=== PATIENT | female | born 1930 | race Caucasian/White ===

== ENCOUNTER → 2017-04-12 | Outpatient (CLI) | payer MEDICARE ==
[~2017-04-12] MED LIST: ASPIRIN 32325 MG/TAB PO; CIMETIDINE400 MG PO; MULTIVITAMIN FO1 CAP PO; NORVASC 5MG5 MG/TAB PO; TAGAMET400 MG PO; TYLENOL 325MG325 MG PO; ZESTRIL 10MG10 MG PO; ZITHROMAX TRI-500 MG PO
== END ==
LOC: ZCOL.LAB 20:08
DX: N39.0 Urinary tract infection, site not specified (principal)

== ENCOUNTER → 2017-04-16 | Outpatient (CLI) | payer MEDICARE ==
[2017-04-16 17:59] LABS: BASO # 0.1 (0.0-0.2); BASO % 0.8 % (0.0-2.0); EOS # 0.2 (0.0-0.7); EOS % 2.5 % (0-4.0); GRAN # 4.3 (1.4-6.5); GRAN % 70.4 % (42.2-75.2); HEMOGLOBIN 12.1 g/dl (12.5-16.0); LYMPH # 1.1 (1.2-3.4); LYMPH % 17.5 % (20.0-51.0); MEAN CELL VOLUME 93 fl (80.0-100.0); MEAN CORPUSCULAR HEMOGLOBIN 31 pg (27.0-31.0); MEAN CORPUSCULAR HGB CONC 33 g/dl (33.0-37.0); MEAN PLATELET VOLUME 9.2 fl (7.4-10.4); MONO # 0.5 (0.1-0.6); MONO % 8.5 % (1.7-9.3); PLATELET COUNT 245 K/mm3 (130-400); RED BLOOD COUNT 3.92 M/mm3 (4.10-5.30); REDCELL DISTRIBUTION WIDTH-CV 12.6 % (11.5-14.5); WHITE BLOOD COUNT 6.1 K/mm3 (4.8-10.8)
[2017-04-16 18:00] LABS: HEMATOCRIT 36.6 % (37.0-47.0)
[2017-04-16 18:05] LABS: ADJUSTED CALCIUM 9.1 mg/dL (8.4-10.2); ALBUMIN 3.7 gm/dL (3.5-5.0); BILIRUBIN,TOTAL 0.7 mg/dL (0.0-1.0); CALCIUM 8.9 mg/dL (8.4-10.2); CREATININE, serum 1.53 mg/dL (0.52-1.25); POTASSIUM 4.8 mmol/L (3.4-5.0); TOTAL PROTEIN 6.4 gm/dL (6.4-8.2)
== END ==
LOC: ZCOL.LAB 17:47
PROVIDERS: Nurse Practitioner Primary Care
DX: R10.9 Unspecified abdominal pain (principal)

== ENCOUNTER → 2017-04-19 | Outpatient (CLI) | payer MEDICARE | LOC: COL.RAD 07:14 | DX: Q60.3 Renal hypoplasia, unilateral (principal); N28.1 Cyst of kidney, acquired; D35.02 Benign neoplasm of left adrenal gland; N32.3 Diverticulum of bladder ==

== ENCOUNTER 2017-09-01 17:36 | Observation (INO) | payer MEDICARE ==
[~2017-09-01] VITALS: Ht 157.5 cm; Wt 41.0 kg
[2017-09-01] MEDS ORDERED: MIRALAX PA17 GM/Dose PO (18:08)
[2017-09-01] MEDS ORDERED: ASPIRIN E.C. 8181 MG PO (18:08)
[2017-09-01 18:25] LABS: BASO % 0.7 % (0.0-2.0); EOS # 0.3 (0.0-0.7); EOS % 5.5 % (0-4.0); GRAN # 4.5 (1.4-6.5); HEMATOCRIT 37.4 % (37.0-47.0); HEMOGLOBIN 12.8 g/dl (12.5-16.0); LYMPH # 0.7 (1.2-3.4); MEAN CELL VOLUME 93 fl (80.0-100.0); MEAN CORPUSCULAR HEMOGLOBIN 32 pg (27.0-31.0); MEAN CORPUSCULAR HGB CONC 34 g/dl (33.0-37.0); MEAN PLATELET VOLUME 9.2 fl (7.4-10.4); MONO # 0.5 (0.1-0.6); MONO % 7.5 % (1.7-9.3); PLATELET COUNT 217 K/mm3 (130-400); RED BLOOD COUNT 4.04 M/mm3 (4.10-5.30); REDCELL DISTRIBUTION WIDTH-CV 12.1 % (11.5-14.5)
[2017-09-01 18:34] LABS: PH 6 (5-8); SQUAMOUS EPITHELIAL None Seen /hpf; URINE APPEARANCE Hazy; URINE BACTERIA Rare /hpf; URINE BILIRUBIN Negative (NEGATIVE); URINE BLOOD 1+ (NEGATIVE); URINE COLOR Yellow; URINE GLUCOSE Negative (NEGATIVE); URINE KETONE Negative (NEGATIVE); URINE UROBILINOGEN Negative (NEGATIVE)
[2017-09-01 18:52] LABS: ADJUSTED CALCIUM 9.1 mg/dL (8.4-10.2); ALANINE AMINOTRANSFERASE 29 U/L (9-52); ALBUMIN 4.2 gm/dL (3.5-5.0); ALKALINE PHOSPHATASE 54 U/L (50-136); ANION GAP 11 mmol/L (7-16); BILIRUBIN,TOTAL 0.8 mg/dL (0.0-1.0); BLOOD UREA NITROGEN 24 mg/dL (7-17); CALCIUM 9.3 mg/dL (8.4-10.2); CARBON DIOXIDE 23 mmol/L (22-30); CHLORIDE 96 mmol/L (98-107); CREATININE, serum 1.41 mg/dL (0.52-1.25); GLUCOSE 96 mg/dL (74-106); LIPASE 73 U/L (23-300); POTASSIUM 4.9 mmol/L (3.4-5.0); SODIUM 130 mmol/L (137-145); TOTAL PROTEIN 6.9 gm/dL (6.4-8.2)
[2017-09-01 18:57] LABS: C-REACTIVE PROTEIN < 0.5 mg/dL (0.0-0.9)
[2017-09-01 19:07] LABS: TROPONIN-I < 0.012 ng/mL (0.000-0.034)
[2017-09-01 21:47] VITALS: BP 192/76; PULSE 70; TEMP 98.6
[2017-09-02 00:41] VITALS: BP 177/68; PULSE 70; TEMP 97.6
[2017-09-02 05:06] VITALS: BP 157/61; PULSE 88; TEMP 97.8
[2017-09-02 10:49] VITALS: BP 172/59; PULSE 51; TEMP 98.1
== END 2017-09-02 15:33 | disposition home or self-care (01) ==
LOC: COL.ER 17:36 → SURG 20:04
PROVIDERS: Emergency Medicine
DX: R10.11 Right upper quadrant pain (principal); G89.29 Other chronic pain; K63.89 Other specified diseases of intestine; Z95.1 Presence of aortocoronary bypass graft; I25.10 Atherosclerotic heart disease of native coronary artery without angina pectoris; I12.9 Hypertensive chronic kidney disease with stage 1 through stage 4 chronic kidney disease, or unspecified chronic kidney disease; N18.9 Chronic kidney disease, unspecified
CPT/HCPCS: G0378; J1170; J2270; J2405; J7030; J7120

== ENCOUNTER → 2018-04-01 | Outpatient (CLI) | payer MEDICARE ==
[~2018-04-01] MED LIST changes: +ASPIRIN E.C. 8181 MG PO; +MIRALAX PA17 GM/Dose PO
== END ==
LOC: MHCPAIN 09:32
DX: G89.29 Other chronic pain (principal); M79.2 Neuralgia and neuritis, unspecified; M79.1 Myalgia; R10.11 Right upper quadrant pain
CPT/HCPCS: G0463

== ENCOUNTER 2018-04-11 11:46 | Emergency (ER) | payer MEDICARE ==
[~2018-04-11] VITALS: Ht 157.5 cm; Wt 40.0 kg
[2018-04-11 11:52] VITALS: BP 162/100; TEMP 97.9
[2018-04-11 12:27] LABS: BASO % 0.4 % (0.0-2.0); EOS % 0.6 % (0-4.0); GRAN # 5.7 (1.4-6.5); GRAN % 80.9 % (42.2-75.2); HEMATOCRIT 43.8 % (37.0-47.0); HEMOGLOBIN 14.6 g/dl (12.5-16.0); LYMPH # 0.8 (1.2-3.4); LYMPH % 11.9 % (20.0-51.0); MEAN CELL VOLUME 95 fl (80.0-100.0); MEAN CORPUSCULAR HEMOGLOBIN 32 pg (27.0-31.0); MEAN CORPUSCULAR HGB CONC 33 g/dl (33.0-37.0); MEAN PLATELET VOLUME 8.8 fl (7.4-10.4); MONO # 0.4 (0.1-0.6); MONO % 5.8 % (1.7-9.3); PLATELET COUNT 316 K/mm3 (130-400); RED BLOOD COUNT 4.61 M/mm3 (4.10-5.30); REDCELL DISTRIBUTION WIDTH-CV 12.9 % (11.5-14.5)
[2018-04-11 12:33] LABS: ALANINE AMINOTRANSFERASE 31 U/L (9-52); ALBUMIN 4.5 gm/dL (3.5-5.0); ALKALINE PHOSPHATASE 115 U/L (50-136); ANION GAP 15 mmol/L (7-16); AST,SGOT 27 U/L (15-37); BILIRUBIN,TOTAL 0.9 mg/dL (0.0-1.0); BLOOD UREA NITROGEN 24 mg/dL (7-17); CALCIUM 9.7 mg/dL (8.4-10.2); CARBON DIOXIDE 23 mmol/L (22-30); CHLORIDE 99 mmol/L (98-107); CREATININE, serum 1.28 mg/dL (0.52-1.25); GLUCOSE 116 mg/dL (74-106); LIPASE 211 U/L (23-300); POTASSIUM 4.3 mmol/L (3.4-5.0); SODIUM 137 mmol/L (137-145); TOTAL PROTEIN 8.2 gm/dL (6.4-8.2)
[2018-04-11 12:37] LABS: C-REACTIVE PROTEIN < 0.5 mg/dL (0.0-0.9)
[2018-04-11 14:01] LABS: COLLECTION METHOD CLEAN CATCH
[2018-04-11 14:13] LABS: MUCOUS Present /lpf; PH 5 (5-8); SQUAMOUS EPITHELIAL None Seen /hpf; URINE APPEARANCE Hazy; URINE BACTERIA Rare /hpf; URINE BILIRUBIN Negative (NEGATIVE); URINE BLOOD 1+ (NEGATIVE); URINE COLOR Yellow; URINE GLUCOSE Negative (NEGATIVE); URINE KETONE Negative (NEGATIVE); URINE LEUKOCYTE ESTERASE 2+ (NEGATIVE); URINE NITRATE Negative (NEGATIVE); URINE PROTEIN(semi-quant) Negative (NEGATIVE); URINE UROBILINOGEN Negative (NEGATIVE)
[2018-04-11] MEDS ORDERED: CIPRO 500MG TA500 MG PO (14:37)
[2018-04-11 18:14] VITALS: PULSE 64
[2018-04-12] MEDS ORDERED: NORVASC 10MG10 MG PO (01:46)
== END 2018-04-11 16:04 | disposition home or self-care (01) ==
LOC: COL.ER 11:46
PROVIDERS: Family Medicine
DX: N39.0 Urinary tract infection, site not specified (principal); K56.7 Ileus, unspecified; Z79.82 Long term (current) use of aspirin
CPT/HCPCS: J0696; J1170; J2270; J2405; J7030

== ENCOUNTER 2018-04-11 19:44 | Inpatient (IN) | payer MEDICARE ==
[~2018-04-11] VITALS: Ht 157.5 cm; Wt 43.9 kg
[~2018-04-11 19:44] MED LIST changes: +CIPRO 500MG TA500 MG PO
[2018-04-11 22:35] LABS: BASO % 0.2 % (0.0-2.0); GRAN # 11.6 (1.4-6.5); GRAN % 93.1 % (42.2-75.2); HEMATOCRIT 38.9 % (37.0-47.0); LYMPH # 0.4 (1.2-3.4); MEAN CELL VOLUME 94 fl (80.0-100.0); MEAN CORPUSCULAR HEMOGLOBIN 32 pg (27.0-31.0); MEAN CORPUSCULAR HGB CONC 33 g/dl (33.0-37.0); MEAN PLATELET VOLUME 8.7 fl (7.4-10.4); MONO # 0.4 (0.1-0.6); MONO % 3.4 % (1.7-9.3); PLATELET COUNT 266 K/mm3 (130-400); RED BLOOD COUNT 4.12 M/mm3 (4.10-5.30); REDCELL DISTRIBUTION WIDTH-CV 12.6 % (11.5-14.5)
[2018-04-12 01:35] VITALS: BP 172/67; PULSE 64; TEMP 98.4
[2018-04-12] MEDS ORDERED: NORVASC 10MG10 MG PO (01:46)
[2018-04-12 04:50] VITALS: BP 162/62; PULSE 55; TEMP 98.5
[2018-04-12 07:19] LABS: BASO % 0.4 % (0.0-2.0); EOS % 0.2 % (0-4.0); GRAN # 6.7 (1.4-6.5); GRAN % 81.6 % (42.2-75.2); HEMATOCRIT 37.2 % (37.0-47.0); HEMOGLOBIN 12.4 g/dl (12.5-16.0); LYMPH # 0.7 (1.2-3.4); LYMPH % 8.8 % (20.0-51.0); MEAN CELL VOLUME 94 fl (80.0-100.0); MEAN CORPUSCULAR HEMOGLOBIN 32 pg (27.0-31.0); MEAN CORPUSCULAR HGB CONC 33 g/dl (33.0-37.0); MEAN PLATELET VOLUME 9.1 fl (7.4-10.4); MONO # 0.7 (0.1-0.6); MONO % 8.5 % (1.7-9.3); PLATELET COUNT 257 K/mm3 (130-400); RED BLOOD COUNT 3.94 M/mm3 (4.10-5.30); REDCELL DISTRIBUTION WIDTH-CV 12.8 % (11.5-14.5)
[2018-04-12 07:30] LABS: ALBUMIN 3.4 gm/dL (3.5-5.0); BILIRUBIN,TOTAL 0.8 mg/dL (0.0-1.0); CALCIUM 8.6 mg/dL (8.4-10.2); CREATININE, serum 1.11 mg/dL (0.52-1.25); POTASSIUM 4.6 mmol/L (3.4-5.0); TOTAL PROTEIN 6.4 gm/dL (6.4-8.2)
[2018-04-12 08:00] VITALS: BP 135/57; PULSE 60; TEMP 98.2
[2018-04-12 12:00] VITALS: BP 137/53; PULSE 53; TEMP 98.9
[2018-04-12 16:17] VITALS: BP 174/58; PULSE 58; TEMP 98.6
[2018-04-12 20:18] VITALS: BP 150/62; PULSE 61; TEMP 98.1
[2018-04-13] VITALS (7 sets, daily range): BP systolic 144–179; BP diastolic 47–80; PULSE 58–82; TEMP 97.9–99.3
[2018-04-13 06:37] LABS: BASO % 0.4 % (0.0-2.0); EOS # 0.1 (0.0-0.7); EOS % 1.8 % (0-4.0); GRAN # 5.9 (1.4-6.5); GRAN % 78.9 % (42.2-75.2); HEMOGLOBIN 11.4 g/dl (12.5-16.0); LYMPH # 0.7 (1.2-3.4); MEAN CELL VOLUME 94 fl (80.0-100.0); MEAN CORPUSCULAR HEMOGLOBIN 31 pg (27.0-31.0); MEAN CORPUSCULAR HGB CONC 33 g/dl (33.0-37.0); MEAN PLATELET VOLUME 9.1 fl (7.4-10.4); MONO # 0.6 (0.1-0.6); MONO % 8.5 % (1.7-9.3); PLATELET COUNT 232 K/mm3 (130-400); RED BLOOD COUNT 3.66 M/mm3 (4.10-5.30); REDCELL DISTRIBUTION WIDTH-CV 12.9 % (11.5-14.5)
[2018-04-13 06:46] LABS: HEMATOCRIT 34.5 % (37.0-47.0)
[2018-04-14 03:55] VITALS: BP 172/60; PULSE 46; TEMP 98.8
[2018-04-14 07:43] VITALS: BP 175/76; PULSE 56; TEMP 98.3
[2018-04-14 10:38] LABS: BASO % 0.1 % (0.0-2.0); EOS % 0.3 % (0-4.0); GRAN % 88.3 % (42.2-75.2); HEMATOCRIT 38.4 % (37.0-47.0); HEMOGLOBIN 12.8 g/dl (12.5-16.0); LYMPH # 0.4 (1.2-3.4); LYMPH % 5.2 % (20.0-51.0); MEAN CELL VOLUME 95 fl (80.0-100.0); MEAN CORPUSCULAR HEMOGLOBIN 32 pg (27.0-31.0); MEAN CORPUSCULAR HGB CONC 33 g/dl (33.0-37.0); MEAN PLATELET VOLUME 9.2 fl (7.4-10.4); MONO # 0.5 (0.1-0.6); MONO % 5.7 % (1.7-9.3); PLATELET COUNT 255 K/mm3 (130-400); RED BLOOD COUNT 4.05 M/mm3 (4.10-5.30); REDCELL DISTRIBUTION WIDTH-CV 12.5 % (11.5-14.5)
[2018-04-14 10:57] LABS: ALBUMIN 3.4 gm/dL (3.5-5.0); BILIRUBIN,TOTAL 0.8 mg/dL (0.0-1.0); CALCIUM 8.9 mg/dL (8.4-10.2); CREATININE, serum 1.01 mg/dL (0.52-1.25); POTASSIUM 3.4 mmol/L (3.4-5.0); TOTAL PROTEIN 6.6 gm/dL (6.4-8.2)
[2018-04-14 12:07] VITALS: BP 177/70; PULSE 79; TEMP 98.4
[2018-04-14 12:07] LABS: MAGNESIUM 1.6 mg/dL (1.6-2.3); PHOSPHOROUS 3.3 mg/dL (2.5-4.5)
[2018-04-14 12:15] LABS: PRE ALBUMIN 17.8 mg/dL (17.6-36.0)
[2018-04-14 20:00] VITALS: BP 153/63; BP 163/63; PULSE 86; TEMP 99
[2018-04-15] VITALS (18 sets, daily range): BP systolic 115–157; BP diastolic 46–85; PULSE 61–110; TEMP 97.7–98.7
[2018-04-15 07:17] LABS: CALCIUM 7.9 mg/dL (8.4-10.2); CREATININE, serum 0.8 mg/dL (0.52-1.25); MAGNESIUM 1.6 mg/dL (1.6-2.3); POTASSIUM 3.5 mmol/L (3.4-5.0)
[2018-04-15 09:43] LABS: CHOLESTEROL RISK RATIO 2.4
[2018-04-16] VITALS: BP 115/54; PULSE 62; TEMP 97.6
[2018-04-16 04:00] VITALS: BP 127/52; PULSE 65; TEMP 97.9
[2018-04-16 07:02] LABS: MEAN CELL VOLUME 95 fl (80.0-100.0); MEAN CORPUSCULAR HEMOGLOBIN 31 pg (27.0-31.0); MEAN CORPUSCULAR HGB CONC 33 g/dl (33.0-37.0); PLATELET COUNT 200 K/mm3 (130-400); RED BLOOD COUNT 3.51 M/mm3 (4.10-5.30); REDCELL DISTRIBUTION WIDTH-CV 12.4 % (11.5-14.5)
[2018-04-16 07:17] LABS: HEMATOCRIT 33.3 % (37.0-47.0)
[2018-04-16 07:21] LABS: ANION GAP 13 mmol/L (7-16); BLOOD UREA NITROGEN 23 mg/dL (7-17); CARBON DIOXIDE 20 mmol/L (22-30); CHLORIDE 105 mmol/L (98-107); CHOLESTEROL 75 mg/dL (120-200); CREATININE, serum 0.93 mg/dL (0.52-1.25); GLUCOSE 182 mg/dL (74-106); MAGNESIUM 1.7 mg/dL (1.6-2.3); POTASSIUM 3.9 mmol/L (3.4-5.0); SODIUM 138 mmol/L (137-145); TRIGLYCERIDE 62 mg/dL
[2018-04-16 07:44] LABS: PRE ALBUMIN 9.5 mg/dL (17.6-36.0)
[2018-04-16 08:47] VITALS: BP 150/59; PULSE 58; TEMP 98
[2018-04-16 08:47] LABS: BAND 3 % (0-10); LYMPHOCYTE 2 % (20.0-51.0); NEUTROPHILS 93 % (42.0-75.2); PLATELET ESTIMATE NORMAL (NORMAL)
[2018-04-16 11:29] VITALS: BP 128/54; PULSE 54; TEMP 98
[2018-04-16 16:03] VITALS: BP 127/49; PULSE 51; TEMP 97.5
[2018-04-16 20:31] VITALS: BP 143/51; PULSE 75; TEMP 97.7
[2018-04-17] VITALS (7 sets, daily range): BP systolic 131–143; BP diastolic 49–79; PULSE 53–90; TEMP 97.4–98.4
[2018-04-17 07:08] LABS: CALCIUM 8.2 mg/dL (8.4-10.2); CREATININE, serum 0.84 mg/dL (0.52-1.25); POTASSIUM 3.7 mmol/L (3.4-5.0)
[2018-04-17 07:28] LABS: MAGNESIUM 1.9 mg/dL (1.6-2.3); PHOSPHOROUS 2.5 mg/dL (2.5-4.5)
[2018-04-18 03:47] VITALS: BP 142/92; PULSE 68; TEMP 98
[2018-04-18 07:19] LABS: CALCIUM 8.2 mg/dL (8.4-10.2); CREATININE, serum 0.82 mg/dL (0.52-1.25); MAGNESIUM 1.8 mg/dL (1.6-2.3); PHOSPHOROUS 2.5 mg/dL (2.5-4.5); POTASSIUM 3.3 mmol/L (3.4-5.0)
[2018-04-18 08:50] VITALS: BP 146/58; PULSE 51; TEMP 97.4
[2018-04-18 13:36] VITALS: BP 138/59; PULSE 60; TEMP 97.9
[2018-04-18 16:20] VITALS: BP 149/52; PULSE 58; TEMP 98.1
[2018-04-18 19:12] VITALS: BP 147/63; PULSE 57; TEMP 97.3
[2018-04-18 23:37] VITALS: BP 148/65; PULSE 53; TEMP 97.9
[2018-04-19 04:09] VITALS: BP 151/59; PULSE 55; TEMP 98
[2018-04-19 08:38] VITALS: BP 173/65; PULSE 63; TEMP 98.2
[2018-04-19 13:11] VITALS: BP 146/48; PULSE 60; TEMP 97.5
[2018-04-19 15:13] VITALS: BP 162/63; PULSE 69; TEMP 97.8
[2018-04-19 17:43] LABS: 12 HR URINE TOTAL VOLUME 2.4 L
[2018-04-19 19:59] VITALS: BP 151/60; PULSE 67; TEMP 97.8
[2018-04-19 23:46] VITALS: BP 153/75; PULSE 64; TEMP 98.1
[2018-04-20 04:17] VITALS: BP 160/82; PULSE 78; TEMP 98.6
[2018-04-20 08:25] VITALS: BP 175/70; PULSE 63; TEMP 97.3
[2018-04-20 11:17] VITALS: BP 138/64; PULSE 57; TEMP 98.4
[2018-04-20 13:07] LABS: CREATININE, serum 0.78 mg/dL (0.52-1.25); POTASSIUM 3.8 mmol/L (3.4-5.0)
[2018-04-20 16:24] VITALS: BP 150/66; PULSE 62; TEMP 98.2
[2018-04-20 20:10] VITALS: BP 151/66; PULSE 66; TEMP 98.4
[2018-04-21 00:05] VITALS: BP 152/75; PULSE 68; TEMP 98.3
[2018-04-21 03:52] VITALS: BP 144/58; PULSE 66; TEMP 98.1
[2018-04-21 06:43] LABS: CALCIUM 8.1 mg/dL (8.4-10.2); CREATININE, serum 0.86 mg/dL (0.52-1.25); PHOSPHOROUS 3.8 mg/dL (2.5-4.5)
[2018-04-21 07:22] VITALS: BP 152/57; PULSE 58; TEMP 97.9
[2018-04-21 11:36] VITALS: BP 137/66; PULSE 67; TEMP 98.1
[2018-04-21 15:34] VITALS: BP 147/66; PULSE 70; TEMP 98.9
[2018-04-21 20:00] VITALS: BP 165/57; PULSE 68; TEMP 98.7
[2018-04-22] VITALS: BP 164/64; PULSE 70; TEMP 97.7
[2018-04-22 04:00] VITALS: BP 155/59; PULSE 63; TEMP 98.4
[2018-04-22 07:27] VITALS: BP 149/64; PULSE 61; TEMP 98.3
[2018-04-22 11:10] VITALS: BP 148/71; PULSE 67; TEMP 98.4
[2018-04-22 15:39] VITALS: BP 134/54; PULSE 71; TEMP 98.4
[2018-04-22 20:00] VITALS: BP 162/60; PULSE 66; TEMP 97.9
[2018-04-23] VITALS (7 sets, daily range): BP systolic 130–169; BP diastolic 55–132; PULSE 58–79; TEMP 97.7–98.4
[2018-04-23 07:10] LABS: HEMOGLOBIN 11.1 g/dl (12.5-16.0); MEAN CELL VOLUME 94 fl (80.0-100.0); MEAN CORPUSCULAR HEMOGLOBIN 31 pg (27.0-31.0); MEAN CORPUSCULAR HGB CONC 33 g/dl (33.0-37.0); MEAN PLATELET VOLUME 9.2 fl (7.4-10.4); PLATELET COUNT 251 K/mm3 (130-400); RED BLOOD COUNT 3.58 M/mm3 (4.10-5.30); REDCELL DISTRIBUTION WIDTH-CV 12.6 % (11.5-14.5)
[2018-04-23 07:14] LABS: HEMATOCRIT 33.8 % (37.0-47.0)
[2018-04-23 07:17] LABS: ALBUMIN 2.8 gm/dL (3.5-5.0); BILIRUBIN,TOTAL 0.3 mg/dL (0.0-1.0); CALCIUM 8.4 mg/dL (8.4-10.2); CREATININE, serum 0.84 mg/dL (0.52-1.25); PHOSPHOROUS 3.9 mg/dL (2.5-4.5); POTASSIUM 4.4 mmol/L (3.4-5.0); TOTAL PROTEIN 5.6 gm/dL (6.4-8.2)
[2018-04-23 07:24] LABS: PRE ALBUMIN 24.6 mg/dL (17.6-36.0)
[2018-04-23 08:10] LABS: BAND 6 % (0-10); EOSINOPHIL 8 % (0-4); LYMPHOCYTE 14 % (20.0-51.0); NEUTROPHILS 66 % (42.0-75.2); PLATELET ESTIMATE NORMAL (NORMAL); TOXIC GRANULATION PRESENT
[2018-04-24 03:32] VITALS: BP 158/86; PULSE 80; TEMP 98.6
[2018-04-24 09:17] VITALS: BP 137/56; PULSE 67; TEMP 98.1
[2018-04-24 12:29] VITALS: BP 148/96; PULSE 73; TEMP 97.6
[2018-04-24 15:37] VITALS: BP 111/63; PULSE 70; TEMP 98.4
[2018-04-24 20:00] VITALS: BP 153/63; PULSE 69; TEMP 98.5
[2018-04-25 00:28] VITALS: BP 157/70; PULSE 70; TEMP 98
[2018-04-25 04:31] VITALS: BP 160/67; PULSE 80; TEMP 98.4
[2018-04-25 07:15] LABS: CALCIUM 8.3 mg/dL (8.4-10.2); CREATININE, serum 0.92 mg/dL (0.52-1.25); MAGNESIUM 2.1 mg/dL (1.6-2.3); PHOSPHOROUS 4.3 mg/dL (2.5-4.5); POTASSIUM 4.6 mmol/L (3.4-5.0)
[2018-04-25 08:32] VITALS: BP 148/67; PULSE 64; TEMP 98.3
[2018-04-25 12:50] VITALS: BP 136/61; PULSE 69; TEMP 98.6
[2018-04-25 15:27] VITALS: BP 121/53; PULSE 71; TEMP 98.2
[2018-04-26 04:00] VITALS: BP 143/62; PULSE 60; TEMP 97.6
[2018-04-26 07:39] VITALS: BP 140/60; PULSE 64; TEMP 98.4
[2018-04-26 11:50] VITALS: BP 129/63; PULSE 69; TEMP 98.4
[2018-04-26 14:26] VITALS: BP 129/63; PULSE 69; TEMP 98.4
== END 2018-04-26 14:30 | DRG 326 ==
LOC: COL.ER 19:44 → SURG 22:11
PROVIDERS: Emergency Medicine; Nurse Practitioner Family; Surgery
PROC: 0DNW0ZZ Release Peritoneum, Open Approach (ICD-10-PCS; 2018-04-15)
PROC: 0FT40ZZ Resection of Gallbladder, Open Approach (ICD-10-PCS; principal; 2018-04-15 15:45)
PROC: 0DH60UZ Insertion of Feeding Device into Stomach, Open Approach (ICD-10-PCS; 2018-04-15 15:45)
PROC: 0DS80ZZ Reposition Small Intestine, Open Approach (ICD-10-PCS; 2018-04-15 15:45)
DX: K56.2 Volvulus (principal); E43 Unspecified severe protein-calorie malnutrition; R64 Cachexia; Z68.1 Body mass index [BMI] 19.9 or less, adult; N39.0 Urinary tract infection, site not specified; K56.51 Intestinal adhesions [bands], with partial obstruction; K81.1 Chronic cholecystitis; I25.10 Atherosclerotic heart disease of native coronary artery without angina pectoris; K21.9 Gastro-esophageal reflux disease without esophagitis; E78.5 Hyperlipidemia, unspecified; N18.9 Chronic kidney disease, unspecified; I12.9 Hypertensive chronic kidney disease with stage 1 through stage 4 chronic kidney disease, or unspecified chronic kidney disease; Z95.1 Presence of aortocoronary bypass graft
CPT/HCPCS: OP; 99223; 99232-AI; A4314; A9284; A9502; B4087; C1751; C9113; G0378; J0610; J0696; J0744; J1100; J1170; J1200; J1644; J1650; J1815; J2250; J2270; J2405; J2704; J2710; J2785; J2930; J3010; J3411; J3475; J3480; J7030; J7042; J7131; Q9967

== ENCOUNTER 2018-06-12 16:46 | Observation (INO) | payer MEDICARE ==
[~2018-06-12] VITALS: Ht 157.5 cm; Wt 40.0 kg
[~2018-06-12 16:46] MED LIST changes: +BACTRIM DS 8001 TAB PO; +NORVASC 10MG10 MG PO; +ROXICODONE 55 MG/TAB PO; +ZOFRAN8 MG PO
[2018-06-12 18:20] LABS: BASO # 0.1 (0.0-0.2); BASO % 0.9 % (0.0-2.0); EOS # 0.1 (0.0-0.7); EOS % 0.9 % (0-4.0); GRAN # 5.1 (1.4-6.5); GRAN % 77.3 % (42.2-75.2); HEMATOCRIT 37.6 % (37.0-47.0); HEMOGLOBIN 12.3 g/dl (12.5-16.0); LYMPH # 0.9 (1.2-3.4); LYMPH % 13.4 % (20.0-51.0); MEAN CELL VOLUME 93 fl (80.0-100.0); MEAN CORPUSCULAR HEMOGLOBIN 31 pg (27.0-31.0); MEAN CORPUSCULAR HGB CONC 33 g/dl (33.0-37.0); MEAN PLATELET VOLUME 8.6 fl (7.4-10.4); MONO # 0.5 (0.1-0.6); MONO % 7.3 % (1.7-9.3); PLATELET COUNT 295 K/mm3 (130-400); RED BLOOD COUNT 4.03 M/mm3 (4.10-5.30); REDCELL DISTRIBUTION WIDTH-CV 12.9 % (11.5-14.5)
[2018-06-12 18:31] LABS: ALANINE AMINOTRANSFERASE 26 U/L (9-52); ALBUMIN 4.3 gm/dL (3.5-5.0); ALKALINE PHOSPHATASE 69 U/L (50-136); ANION GAP 11 mmol/L (7-16); AST,SGOT 25 U/L (15-37); BILIRUBIN,TOTAL 0.4 mg/dL (0.0-1.0); BLOOD UREA NITROGEN 30 mg/dL (7-17); CALCIUM 9.1 mg/dL (8.4-10.2); CARBON DIOXIDE 25 mmol/L (22-30); CHLORIDE 98 mmol/L (98-107); CREATININE, serum 1.05 mg/dL (0.52-1.25); GLUCOSE 96 mg/dL (74-106); POTASSIUM 4.7 mmol/L (3.4-5.0); SODIUM 134 mmol/L (137-145); TOTAL PROTEIN 7.3 gm/dL (6.4-8.2)
[2018-06-12 18:41] LABS: C-REACTIVE PROTEIN < 0.5 mg/dL (0.0-0.9)
[2018-06-12 18:51] LABS: COLLECTION METHOD CLEAN CATCH
[2018-06-12 19:02] LABS: PH 5 (5-8); SQUAMOUS EPITHELIAL None Seen /hpf; URINE APPEARANCE Clear; URINE BACTERIA None Seen /hpf; URINE BILIRUBIN Negative (NEGATIVE); URINE BLOOD Negative (NEGATIVE); URINE COLOR Yellow; URINE GLUCOSE Negative (NEGATIVE); URINE KETONE Negative (NEGATIVE); URINE LEUKOCYTE ESTERASE Negative (NEGATIVE); URINE NITRATE Negative (NEGATIVE); URINE PROTEIN(semi-quant) Negative (NEGATIVE); URINE RBC 0-2 /hpf; URINE UROBILINOGEN Negative (NEGATIVE)
[2018-06-12 21:53] VITALS: BP 127/68; PULSE 67; TEMP 98.4
[2018-06-12] MEDS ORDERED: ASPIRIN 32325 MG/TAB PO (23:19)
[2018-06-13] VITALS (8 sets, daily range): BP systolic 106–134; BP diastolic 52–74; PULSE 65–77; TEMP 98–99
[2018-06-13 06:47] LABS: BASO % 0.6 % (0.0-2.0); EOS # 0.2 (0.0-0.7); EOS % 2.4 % (0-4.0); GRAN # 4.3 (1.4-6.5); GRAN % 67.8 % (42.2-75.2); LYMPH # 1.3 (1.2-3.4); LYMPH % 20.1 % (20.0-51.0); MEAN CELL VOLUME 96 fl (80.0-100.0); MEAN CORPUSCULAR HGB CONC 32 g/dl (33.0-37.0); MEAN PLATELET VOLUME 8.9 fl (7.4-10.4); MONO # 0.6 (0.1-0.6); MONO % 8.9 % (1.7-9.3); PLATELET COUNT 230 K/mm3 (130-400); RED BLOOD COUNT 3.17 M/mm3 (4.10-5.30); REDCELL DISTRIBUTION WIDTH-CV 13.1 % (11.5-14.5)
[2018-06-13 06:58] LABS: CALCIUM 8.1 mg/dL (8.4-10.2); CREATININE, serum 0.94 mg/dL (0.52-1.25); POTASSIUM 4.4 mmol/L (3.4-5.0)
[2018-06-13 07:00] LABS: HEMOGLOBIN 9.6 g/dl (12.5-16.0); MEAN CORPUSCULAR HEMOGLOBIN 30 pg (27.0-31.0)
[2018-06-13 07:01] LABS: HEMATOCRIT 30.4 % (37.0-47.0)
[2018-06-13 09:47] LABS: HEMOGLOBIN 10.7 g/dl (12.5-16.0)
[2018-06-13 09:52] LABS: HEMATOCRIT 33.1 % (37.0-47.0)
[2018-06-13 10:54] LABS: PROTHROMBIN TIME 11.6 SECONDS (9.7-12.8)
[2018-06-13] MEDS ORDERED: MIRALAX510G PO (15:42)
[2018-06-14] VITALS: BP 130/79; PULSE 62; TEMP 98.1
[2018-06-14 04:00] VITALS: BP 143/70; PULSE 64; TEMP 98
[2018-06-14 07:01] LABS: BASO # 0.1 (0.0-0.2); BASO % 0.9 % (0.0-2.0); EOS # 0.2 (0.0-0.7); EOS % 2.6 % (0-4.0); GRAN # 4.8 (1.4-6.5); GRAN % 71.4 % (42.2-75.2); HEMOGLOBIN 10.6 g/dl (12.5-16.0); LYMPH # 1.2 (1.2-3.4); LYMPH % 17.7 % (20.0-51.0); MEAN CELL VOLUME 96 fl (80.0-100.0); MEAN CORPUSCULAR HEMOGLOBIN 31 pg (27.0-31.0); MEAN CORPUSCULAR HGB CONC 32 g/dl (33.0-37.0); MEAN PLATELET VOLUME 9.1 fl (7.4-10.4); MONO # 0.5 (0.1-0.6); MONO % 7.1 % (1.7-9.3); PLATELET COUNT 230 K/mm3 (130-400); RED BLOOD COUNT 3.45 M/mm3 (4.10-5.30); REDCELL DISTRIBUTION WIDTH-CV 13.1 % (11.5-14.5)
[2018-06-14 07:16] LABS: CALCIUM 8.4 mg/dL (8.4-10.2); CREATININE, serum 0.93 mg/dL (0.52-1.25); POTASSIUM 4.1 mmol/L (3.4-5.0)
[2018-06-14 08:58] VITALS: BP 148/64; PULSE 67; TEMP 98.5
[2018-06-14 12:30] VITALS: BP 122/61; PULSE 81; TEMP 98.6
== END 2018-06-14 15:20 | disposition home or self-care (01) ==
LOC: COL.ER 16:46 → SURG 20:15
PROVIDERS: Emergency Medicine; Hospitalist; Nurse Practitioner; Nurse Practitioner Family
DX: K56.49 Other impaction of intestine (principal); N32.0 Bladder-neck obstruction; R33.9 Retention of urine, unspecified; N13.30 Unspecified hydronephrosis; I25.10 Atherosclerotic heart disease of native coronary artery without angina pectoris; E78.5 Hyperlipidemia, unspecified; E46 Unspecified protein-calorie malnutrition; I12.9 Hypertensive chronic kidney disease with stage 1 through stage 4 chronic kidney disease, or unspecified chronic kidney disease; N18.9 Chronic kidney disease, unspecified; Z95.1 Presence of aortocoronary bypass graft; Z79.82 Long term (current) use of aspirin; Z88.0 Allergy status to penicillin; Z88.8 Allergy status to other drugs, medicaments and biological substances
CPT/HCPCS: 99239; G0378; G8978-GP; G8979-GP; G8987-GO; G8988-GO; J1170; J2405; J7030; Q9967

== ENCOUNTER → 2018-07-04 | Outpatient (CLI) | payer MEDICARE ==
[~2018-07-04] MED LIST changes: +MIRALAX510G PO
== END ==
LOC: MHCPAIN 09:49
DX: G89.29 Other chronic pain (principal); M79.2 Neuralgia and neuritis, unspecified; M79.1 Myalgia
CPT/HCPCS: G0463

== ENCOUNTER 2018-07-22 09:39 | Day surgery (SDC) | payer MEDICARE ==
[~2018-07-22] VITALS: Ht 157.5 cm; Wt 40.8 kg
[2018-07-22] MEDS ORDERED: ZANTAC 7575 MG PO (10:14)
[2018-07-22] MEDS ORDERED: TYLENOL 325MG325 MG PO (10:15)
[2018-07-22 10:16] VITALS: BP 134/78; PULSE 70; TEMP 98.3
[2018-07-22] MEDS ORDERED: PRILOSEC 20MG20 MG PO (11:55)
[2018-07-22 12:00] VITALS: BP 140/73; PULSE 70; TEMP 98.2
[2018-07-22 12:15] VITALS: BP 138/93; PULSE 72
[2018-07-22 12:30] VITALS: BP 156/77; PULSE 67
== END 2018-07-22 13:05 | disposition home or self-care (01) ==
LOC: SDCO 09:39
DX: K29.30 Chronic superficial gastritis without bleeding (principal); K44.9 Diaphragmatic hernia without obstruction or gangrene; K21.0 Gastro-esophageal reflux disease with esophagitis; K31.5 Obstruction of duodenum; K26.7 Chronic duodenal ulcer without hemorrhage or perforation; K25.9 Gastric ulcer, unspecified as acute or chronic, without hemorrhage or perforation; I12.9 Hypertensive chronic kidney disease with stage 1 through stage 4 chronic kidney disease, or unspecified chronic kidney disease; N18.9 Chronic kidney disease, unspecified; K59.09 Other constipation; D64.9 Anemia, unspecified; I25.119 Atherosclerotic heart disease of native coronary artery with unspecified angina pectoris; Z95.1 Presence of aortocoronary bypass graft; Z79.82 Long term (current) use of aspirin; Z88.0 Allergy status to penicillin; Z88.2 Allergy status to sulfonamides; Z88.6 Allergy status to analgesic agent; Z88.8 Allergy status to other drugs, medicaments and biological substances; Z82.49 Family history of ischemic heart disease and other diseases of the circulatory system
CPT/HCPCS: J2704; J7030

== ENCOUNTER → 2018-07-29 | Outpatient (CLI) | payer MEDICARE ==
[~2018-07-29] MED LIST changes: +PRILOSEC 20MG20 MG PO; +ZANTAC 7575 MG PO
== END ==
LOC: MHCPAIN 15:26
DX: G89.29 Other chronic pain (principal); M79.2 Neuralgia and neuritis, unspecified; M79.1 Myalgia
CPT/HCPCS: G0463

== ENCOUNTER → 2018-09-09 | Outpatient (CLI) | payer MEDICARE | LOC: MHCPAIN 12:51 | DX: G89.29 Other chronic pain (principal); M79.2 Neuralgia and neuritis, unspecified; R10.817 Generalized abdominal tenderness | CPT/HCPCS: G0463 ==

== ENCOUNTER → 2018-12-09 | Outpatient (CLI) | payer MEDICARE | LOC: MHCPAIN 14:00 | DX: G89.29 Other chronic pain (principal); M79.2 Neuralgia and neuritis, unspecified | CPT/HCPCS: G0463 ==

== ENCOUNTER → 2019-03-03 | Outpatient (CLI) | payer MEDICARE | LOC: COL.RAD 07:34 | DX: I12.9 Hypertensive chronic kidney disease with stage 1 through stage 4 chronic kidney disease, or unspecified chronic kidney disease (principal); N18.3 Chronic kidney disease, stage 3 (moderate); D35.02 Benign neoplasm of left adrenal gland; I65.22 Occlusion and stenosis of left carotid artery ==

== ENCOUNTER → 2019-03-09 | Outpatient (CLI) | payer MEDICARE | LOC: COL.RAD 11:32 | DX: N18.3 Chronic kidney disease, stage 3 (moderate) (principal); D35.02 Benign neoplasm of left adrenal gland; I12.9 Hypertensive chronic kidney disease with stage 1 through stage 4 chronic kidney disease, or unspecified chronic kidney disease; I65.22 Occlusion and stenosis of left carotid artery | CPT/HCPCS: A9562 ==

== ENCOUNTER → 2019-03-13 | Outpatient (CLI) | payer MEDICARE | LOC: COL.RAD 12:57 | DX: I12.9 Hypertensive chronic kidney disease with stage 1 through stage 4 chronic kidney disease, or unspecified chronic kidney disease (principal); N18.3 Chronic kidney disease, stage 3 (moderate); D35.02 Benign neoplasm of left adrenal gland; I65.22 Occlusion and stenosis of left carotid artery | CPT/HCPCS: A9562 ==

== ENCOUNTER → 2019-03-24 | Outpatient (CLI) | payer MEDICARE | LOC: MHCPAIN 10:18 | DX: G89.29 Other chronic pain (principal); M79.2 Neuralgia and neuritis, unspecified | CPT/HCPCS: G0463 ==

== ENCOUNTER → 2019-04-28 | Outpatient (CLI) | payer MEDICARE | LOC: MHCPAIN 09:16 | DX: G89.29 Other chronic pain (principal); M79.2 Neuralgia and neuritis, unspecified | CPT/HCPCS: G0463 ==

== ENCOUNTER → 2019-05-07 | Outpatient (CLI) | payer MEDICARE | LOC: COL.RAD 05-04 13:00 | DX: Z01.812 Encounter for preprocedural laboratory examination (principal); K63.89 Other specified diseases of intestine; I70.0 Atherosclerosis of aorta; I70.8 Atherosclerosis of other arteries; N26.1 Atrophy of kidney (terminal); N28.1 Cyst of kidney, acquired; Z90.710 Acquired absence of both cervix and uterus; Z90.49 Acquired absence of other specified parts of digestive tract | CPT/HCPCS: Q9967 ==

== ENCOUNTER → 2019-07-28 | Outpatient (CLI) | payer MEDICARE | LOC: MHCPAIN 09:21 | DX: G89.29 Other chronic pain (principal); M79.2 Neuralgia and neuritis, unspecified | CPT/HCPCS: G0463 ==

== ENCOUNTER 2019-09-24 20:23 | Inpatient (IN) | payer MEDICARE ==
[~2019-09-24] VITALS: Ht 157.5 cm; Wt 42.2 kg
[2019-09-24 21:02] LABS: BASO % 0.7 % (0.0-2.0); EOS # 0.1 (0.0-0.7); EOS % 2.4 % (0-4.0); GRAN % 67.2 % (42.2-75.2); HEMATOCRIT 39.8 % (37.0-47.0); HEMOGLOBIN 13.1 g/dl (12.5-16.0); LYMPH # 1.2 (1.2-3.4); LYMPH % 19.5 % (20.0-51.0); MEAN CELL VOLUME 93 fl (80.0-100.0); MEAN CORPUSCULAR HEMOGLOBIN 31 pg (27.0-31.0); MEAN CORPUSCULAR HGB CONC 33 g/dl (33.0-37.0); MEAN PLATELET VOLUME 8.5 fl (7.4-10.4); MONO # 0.6 (0.1-0.6); PLATELET COUNT 289 K/mm3 (130-400); RED BLOOD COUNT 4.26 M/mm3 (4.10-5.30); REDCELL DISTRIBUTION WIDTH-CV 12.7 % (11.5-14.5)
[2019-09-24 21:10] LABS: ALBUMIN 4.7 gm/dL (3.5-5.0); BILIRUBIN,TOTAL 0.7 mg/dL (0.0-1.0); CALCIUM 9.4 mg/dL (8.4-10.2); CREATININE, serum 1.26 (0.52-1.25); POTASSIUM 4.4 mmol/L (3.4-5.0); TOTAL PROTEIN 7.7 gm/dL (6.4-8.2)
[2019-09-24 22:42] LABS: COLLECTION METHOD CLEAN CATCH
[2019-09-24 22:47] LABS: MUCOUS Present /lpf; PH 7 (5-8); SQUAMOUS EPITHELIAL None Seen /hpf; URINE APPEARANCE Hazy; URINE BACTERIA None Seen /hpf; URINE BILIRUBIN Negative (NEGATIVE); URINE BLOOD Negative (NEGATIVE); URINE COLOR Yellow; URINE GLUCOSE Negative (NEGATIVE); URINE KETONE Negative (NEGATIVE); URINE LEUKOCYTE ESTERASE 1+ (NEGATIVE); URINE NITRATE Positive (NEGATIVE); URINE PROTEIN(semi-quant) Negative (NEGATIVE); URINE RBC 0-2 /hpf; URINE UROBILINOGEN Negative (NEGATIVE)
[2019-09-25] VITALS (7 sets, daily range): BP systolic 122–176; BP diastolic 55–72; PULSE 56–98; TEMP 98–98.8
--- NOTE | 2019-09-25 01:31 | NUR ---
Pt arrived to unit from ED. Alert and oriented. VSS. IV to L forearm with LR running at 75/hr. Pt here with SBO. Abdomen is distended and rigid. C/o pain, asked for PRN morphine. Given to patient with some relief. Patient preferred to stay in her own clothes, did not want to change to gown. Call light within reach, will continue to monitor
--- NOTE | 2019-09-25 01:35 | NUR ---
NG tube to int suction with yellow drainage.
[2019-09-25 07:16] LABS: HEMOGLOBIN 11.8 g/dl (12.5-16.0); MEAN CELL VOLUME 96 fl (80.0-100.0); MEAN CORPUSCULAR HEMOGLOBIN 31 pg (27.0-31.0); MEAN CORPUSCULAR HGB CONC 33 g/dl (33.0-37.0); MEAN PLATELET VOLUME 8.6 fl (7.4-10.4); PLATELET COUNT 242 K/mm3 (130-400); RED BLOOD COUNT 3.78 M/mm3 (4.10-5.30); REDCELL DISTRIBUTION WIDTH-CV 12.7 % (11.5-14.5)
[2019-09-25 07:25] LABS: HEMATOCRIT 36.1 % (37.0-47.0)
[2019-09-25 07:30] LABS: ALBUMIN 3.9 gm/dL (3.5-5.0); BILIRUBIN,TOTAL 0.7 mg/dL (0.0-1.0); CALCIUM 8.6 mg/dL (8.4-10.2); CREATININE, serum 1.02 (0.52-1.25); POTASSIUM 4.3 mmol/L (3.4-5.0); TOTAL PROTEIN 6.8 gm/dL (6.4-8.2)
[2019-09-25 07:56] LABS: BAND 4 % (0-10); LYMPHOCYTE 9 % (20.0-51.0); METAMYELOCYTE 1 % (0-0); NEUTROPHILS 84 % (42.0-75.2); PLATELET ESTIMATE NORMAL (NORMAL)
--- NOTE | 2019-09-25 09:15 | NUR ---
Patient alert and oriented, answers questions appropriately. See assessment. Abdomen soft, non tender, non distended. Bowel sounds active x4 quads. +Flatus. NGT to left nare, LIS, yellow drainage noted. No c/o pain or discomfort at this time.
--- NOTE | 2019-09-25 09:40 | NUR ---
NGT to dependent drainage r/t oral medications.
--- NOTE | 2019-09-25 10:04 | NUR ---
Initial visit; Patient thanked Chaplian for looking in on her and offering God's blessings.
--- NOTE | 2019-09-25 12:38 | NUR ---
NGT continues to dependent drainage per Drs order.
--- NOTE | 2019-09-25 15:55 | NUR ---
NGT discontinued at this time.
--- NOTE | 2019-09-25 18:21 | NUR ---
Pt ambulates to bathroom and back with little to no assistance. NG tube d/c pt tolerated well and able to drink fluids. pain level 2/10.no complaints, call light left in hand. Reported off to CATRACHITO Barnes.
--- NOTE | 2019-09-25 20:08 | NUR ---
Assessment complete. Rating pain 6/10 in abd, sore, worse with gas. Administer pain medication as prescribed. Patient says that she is passing gas and had a bowel movement earlier this evening. Patient denies further needs or concerns at this time.
--- NOTE | 2019-09-25 21:00 | NUR ---
Rates pain 5/10 in abdomen, explains the pain medication helped some. Ambulates to bathroom with assist of one. Gati steady. Patient urinates without difficulty. Returns to bed. Denies further needs.
--- NOTE | 2019-09-26 00:04 | NUR ---
Lying in bed on left side with eyes closed. Respirations even and unlabored. No signs or symptoms of discomfort noted.
[2019-09-26 00:33] VITALS: BP 146/73; PULSE 64; TEMP 98.4
[2019-09-26 03:56] VITALS: BP 124/63; PULSE 72; TEMP 98.7
--- NOTE | 2019-09-26 04:02 | NUR ---
Patient having soreness in left ribs. Offered pain medication, patient declines at this time. Patient ambulates to restroom, voids, and returns to bed. Denies further needs.
--- NOTE | 2019-09-26 05:40 | NUR ---
Lying in bed in supine position with eyes closed. Eyes open when enter room. Denies concerns or needs at this time.
[2019-09-26 06:40] LABS: BASO % 0.8 % (0.0-2.0); EOS # 0.2 (0.0-0.7); EOS % 4.5 % (0-4.0); GRAN # 3.5 (1.4-6.5); GRAN % 64.9 % (42.2-75.2); HEMOGLOBIN 11.1 g/dl (12.5-16.0); MEAN CELL VOLUME 96 fl (80.0-100.0); MEAN CORPUSCULAR HEMOGLOBIN 31 pg (27.0-31.0); MEAN CORPUSCULAR HGB CONC 32 g/dl (33.0-37.0); MEAN PLATELET VOLUME 9.2 fl (7.4-10.4); MONO # 0.6 (0.1-0.6); MONO % 11.4 % (1.7-9.3); PLATELET COUNT 233 K/mm3 (130-400); RED BLOOD COUNT 3.59 M/mm3 (4.10-5.30); REDCELL DISTRIBUTION WIDTH-CV 12.6 % (11.5-14.5)
[2019-09-26 06:46] LABS: CALCIUM 8.1 mg/dL (8.4-10.2); CREATININE, serum 1.05 (0.52-1.25); POTASSIUM 4.5 mmol/L (3.4-5.0)
[2019-09-26 06:47] LABS: HEMATOCRIT 34.6 % (37.0-47.0)
--- NOTE | 2019-09-26 07:30 | NUR ---
Patient resting in bed at this time. Patient is alert and oriented, answers questions appropriately. Patient is SBA to bathroom, where she is continent of urine. Patient and state that they would like to be discharged as quickly as possible in order to avoid traffic. Patient denies pain or further needs, call light within reach.
[2019-09-26 08:18] VITALS: BP 148/66; PULSE 66; TEMP 99.5
--- NOTE | 2019-09-26 10:15 | NUR ---
Discharge coordinated with social work for return to [facility]. Discharge teaching completed. Informed patient of provider instructions to follow up with her primary care as needed and to follow a low fiber diet. Provided discharge information on low fiber diet and small bowel obstruction, along with instructions on what symptoms to return or seek care for. Patient and deny questions. Removed IV per orders and patient confirmed she had gathered all her personal belongings. Patient and escorted to ER entrance where she got into a private vehicle.
--- NOTE | 2019-09-26 16:12 | NUR ---
Plan: To return home with Enrrique as care [phone] and EMR. DPOA is also Enrrique. Patient resides as [place] in Independant Living quarters. Assess: SW met with patient with at bedside. Patient gave permission to discuss information infront of spouse. Patient reports that does not use any DME , and that her PCP is Dr. Emmanuel Clayton. Patient reports that she does not have an upcoming appt, and she receives her medications from [facility] with no concerns. Patient currently denies a need for any HH services at this time. Action: No additional concerns identified. Patient was educated on community resources and supports.
--- NOTE | 2019-09-28 08:53 | NUR ---
trailhead construction worker confirmed that patient discharged home, with her spouse on 09/26/19. Worker confirmed that patient and spouse live in independent living at [facility] and returned there upon discharge. Beatriz with [facility] states they are planning to order a PICC line as there is an infection and they will pursue IV antibiotics as outpatient or skilled if needed. Beatriz is aware of patient's insurance and authorizations required.
== END 2019-09-26 10:23 | disposition home or self-care (01) | DRG 388 ==
LOC: COL.ER 20:23 → SURG 22:17
PROVIDERS: Emergency Medicine; ADMIT Surgery
DX: K56.609 Unspecified intestinal obstruction, unspecified as to partial versus complete obstruction (principal); E43 Unspecified severe protein-calorie malnutrition; Z68.1 Body mass index [BMI] 19.9 or less, adult; K56.2 Volvulus; Z88.0 Allergy status to penicillin; Z88.8 Allergy status to other drugs, medicaments and biological substances; I10 Essential (primary) hypertension; I25.10 Atherosclerotic heart disease of native coronary artery without angina pectoris; Z95.1 Presence of aortocoronary bypass graft; R63.6 Underweight
CPT/HCPCS: A4216; J0696; J1170; J2270; J2405; J3010; J7030; J7120; Q9967

== ENCOUNTER → 2019-10-21 | Outpatient (CLI) | payer MEDICARE | LOC: MHCPAIN 09:51 | DX: G89.29 Other chronic pain (principal); M79.2 Neuralgia and neuritis, unspecified | CPT/HCPCS: G0463 ==

== ENCOUNTER → 2021-02-08 | Outpatient (CLI) | payer MEDICARE ==
[~2021-02-08] MED LIST changes: +DULCOLAX STOOL100 MG PO; +LASIX 20MG TABL20 MG PO; +LIPITOR 40MG TA40 MG PO; +NITROSTAT0.4 MG/TAB SL; +NORCO 325 MG-51 TAB PO; +PLAVIX 75MG TAB75 MG PO; +PROTONIX20 MG PO; +TOPROL XL 25MG25 MG PO
== END ==
LOC: COL.RAD
DX: N26.1 Atrophy of kidney (terminal) (principal); N32.3 Diverticulum of bladder; R74.8 Abnormal levels of other serum enzymes

== ENCOUNTER 2021-08-13 15:04 | Inpatient (IN) | payer MEDICARE ==
[~2021-08-13] VITALS: Ht 160 cm; Wt 39.1 kg
[~2021-08-13 15:04] MED LIST changes: -DULCOLAX STOOL100 MG PO; -LASIX 20MG TABL20 MG PO; -LIPITOR 40MG TA40 MG PO; -NITROSTAT0.4 MG/TAB SL; -NORCO 325 MG-51 TAB PO; -PLAVIX 75MG TAB75 MG PO; -PROTONIX20 MG PO; -TOPROL XL 25MG25 MG PO
[2021-08-13 15:51] LABS: BASO # 0.1 (0.0-0.2); BASO % 0.6 % (0.0-2.0); EOS # 0.1 (0.0-0.7); EOS % 0.8 % (0-4.0); GRAN # 8.7 (1.4-6.5); GRAN % 84.2 % (42.2-75.2); HEMATOCRIT 43.8 % (37.0-47.0); HEMOGLOBIN 13.9 g/dl (12.5-16.0); LYMPH # 0.9 (1.2-3.4); LYMPH % 8.5 % (20.0-51.0); MEAN CELL VOLUME 99 fl (80.0-100.0); MEAN CORPUSCULAR HEMOGLOBIN 31 pg (27.0-31.0); MEAN CORPUSCULAR HGB CONC 32 g/dl (33.0-37.0); MONO # 0.6 (0.1-0.6); MONO % 5.5 % (1.7-9.3); PLATELET COUNT 301 K/mm3 (130-400); RED BLOOD COUNT 4.44 M/mm3 (4.10-5.30); REDCELL DISTRIBUTION WIDTH-CV 13.2 % (11.5-14.5)
[2021-08-13 16:09] LABS: ALBUMIN 4.3 gm/dL (3.5-5.0); BILIRUBIN,TOTAL 0.6 mg/dL (0.0-1.0); CREATININE, serum 1.13 (0.52-1.25); POTASSIUM 4.8 mmol/L (3.4-5.0); TOTAL PROTEIN 7.3 gm/dL (6.4-8.2)
[2021-08-13 16:21] LABS: TROPONIN-I 0.991 ng/mL (0.000-0.035)
[2021-08-13 16:40] LABS: INR 0.9 (0.8-3.0); PROTHROMBIN TIME 10.4 SECONDS (9.7-12.8)
[2021-08-13 16:43] LABS: PARTIAL THROMBOPLASTIN TIME 31.4 SECONDS (26.0-37.0)
[2021-08-13 18:26] LABS: CALCIUM 8.8 mg/dL (8.4-10.2); CREATININE, serum 1.11 (0.52-1.25); POTASSIUM 4.5 mmol/L (3.4-5.0)
[2021-08-13 22:15] VITALS: BP 166/100; PULSE 63; TEMP 98.4
--- NOTE | 2021-08-13 22:31 | NUR ---
ADMITTED TO 324 FROM E.D. WITH Dx OF CHEST PAIN. PT HAD NO C/O CHEST PAIN DURING ASSESSMENT. HEPARIN gtt INFFUSING ORDERED. NEXT HEP Xa AT 2330.
[2021-08-14] VITALS (16 sets, daily range): BP systolic 116–171; BP diastolic 60–88; PULSE 70–86; TEMP 97.7–98.8
--- NOTE | 2021-08-14 01:11 | NUR ---
AFTER HEP Xa PT's HEPARIN gtt INCREASED TO 700 UNITS/HR AND 1000 UNIT BOLUS ADMIN. NEXT HEP Xa AT 0700.
--- NOTE | 2021-08-14 06:10 | NUR ---
RESTING QUIETLY. PT STATES SHE'S HAD VERY LITTLE CHEST DISCOMFORT. SHE DID GET TYLENOL FOR A HEADACHE AND ZOFRAN FOR NAUSEA EARLIER IN SHIFT. HEPARIN gtt INFUSES AT 700 UNITS PER HOUR.
--- NOTE | 2021-08-14 07:00 | NUR ---
Report received from CATRACHITO Hagen. PT in bed resting, denies needs, will continue to monitor. Called NATALIE Mann with hospitalist regarding last nights troponin and pt has no active cardiology consult, received orders nad notified MADDI Linares with Dr. Blancas.
[2021-08-14 07:27] LABS: BASO % 0.4 % (0.0-2.0); EOS # 0.1 (0.0-0.7); EOS % 1.4 % (0-4.0); GRAN # 6.5 (1.4-6.5); GRAN % 77.4 % (42.2-75.2); HEMATOCRIT 39.4 % (37.0-47.0); HEMOGLOBIN 12.3 g/dl (12.5-16.0); LYMPH # 1.1 (1.2-3.4); LYMPH % 12.5 % (20.0-51.0); MEAN CELL VOLUME 100 fl (80.0-100.0); MEAN CORPUSCULAR HEMOGLOBIN 31 pg (27.0-31.0); MEAN CORPUSCULAR HGB CONC 31 g/dl (33.0-37.0); MEAN PLATELET VOLUME 9.2 fl (7.4-10.4); MONO # 0.7 (0.1-0.6); MONO % 7.9 % (1.7-9.3); PLATELET COUNT 253 K/mm3 (130-400); RED BLOOD COUNT 3.96 M/mm3 (4.10-5.30); REDCELL DISTRIBUTION WIDTH-CV 13.3 % (11.5-14.5)
[2021-08-14 08:00] LABS: CALCIUM 8.5 mg/dL (8.4-10.2); CREATININE, serum 1.2 (0.52-1.25); POTASSIUM 5.2 mmol/L (3.4-5.0)
--- NOTE | 2021-08-14 08:09 | NUR ---
Assessmetn charted. PT alert and oriented, ambulates well with no assistance to bathroom. Denies chest pain but does report some nausea but no desire for meds at this time. on way here to see pt. Discussed plan to be NPO until lump receiver visits. Will continue to monitor.
[2021-08-14 08:24] LABS: TROPONIN-I 3.85 ng/mL (0.000-0.035)
--- NOTE | 2021-08-14 09:20 | NUR ---
First visit from the congressional district aide. No needs right now.
--- NOTE | 2021-08-14 11:00 | NUR ---
SANTIAGO met with patient and her , Enrrique, at b/s. Patient is to have a heart cath today. Spoke with patient and husb about DME's; patient has a cane and walker but doesn't use them d/t "pride". SW discussed the importance of the use of DME's and patient agreeable. Husb is established as DPOA. They live in a duplex w/ no stairs and patient is indep with ADL's. No O2 use. PCP is Dr. Emmanuel Clayton and patient gets her meds through [facility] with no problem affording them. Couple have no children but several friends in the area. *Patient will likely d/c home w/ no needs
--- NOTE | 2021-08-14 16:26 | NUR ---
SEE MERGE DOCUMENTATION FOR MEDICATION ADMINISTRATION AND INTRA/POST PROCEDURE SEDATION ASSESSMENTS.
--- NOTE | 2021-08-14 18:15 | NUR ---
Pt returend from heart catheterization, feeling well, L wrist is bruised and TR band in place with 17mls air. Tolerating well, CMS intact. to go home at [facility]. Denies needs, will monitor and give bedside shift report to nightshift nurse who will resume care.
--- NOTE | 2021-08-14 21:15 | NUR ---
5ML OF AIR RELEASED FROM LEFT RADIAL CATH SITE. BAND IS INTACT. BRUISING NOTED AROUND BAND. NO NEW BLEEDING SEEN. PT DENIES OTHER NEEDS. WILL CONTINUE TO MONITOR.
--- NOTE | 2021-08-14 23:00 | NUR ---
2215: 2.5ML RELEASED FROM LEFT RADIAL BAND. NO NEW BLEEDING SEEN. 2300: 4ML RELEASED FROM BAND. NO NEW BLEEDING SEEN. WILL CONTINUE TO MONITOR.
[2021-08-15] VITALS: BP 148/81; PULSE 75; TEMP 98.2
--- NOTE | 2021-08-15 00:41 | NUR ---
PT'S BED ALARM GOES OFF, PT NEEDS TO USE BATHROOM. SBA USED. PT URINATES. LEFT RADIAL BAND IS INTACT, REMAINING AIR OF 2.5ML TAKEN OUT. NO NEW BLEEDING NOTED. PT AMBULATES BACK TO BED, GAIT IS STEADY. PT IS EDUCATED ON USE OF CALL LIGHT. YELLOW GOWN, SOCKS, FALL RISK ARMBAND ON. BED ALARM ON.
--- NOTE | 2021-08-15 01:11 | NUR ---
Up out of bed setting off bed alarm off. States she needs to use the restroom. Very impulsive and not steady on her feet. Doesnt appear to be confused just impulsive.
[2021-08-15 04:00] VITALS: BP 159/78; PULSE 73; TEMP 97.8
--- NOTE | 2021-08-15 04:37 | NUR ---
DRESSING REMOVED FROM LEFT RADIAL CATH SITE. BRUISING IS SEEN AROUND SITE THAT BAND WAS ON. PT DENIES PAIN @ SITE BUT DOES HAVE HEADACHE. PO TYLENOL ADMINISTERED. PT AMBULATES TO WITH SBA. PT DENIES OTHER NEEDS. BED ALARM ON, CALL LIGHT WITHIN REACH.
[2021-08-15 08:22] VITALS: BP 155/76; PULSE 67; TEMP 97.9
--- NOTE | 2021-08-15 08:30 | NUR ---
Patient sitting up in recliner. Alert and oriented x 3. Assessment complete. Denies pain at this time. Cardiology in to see patient, held nitopaste at this time. Assisted patient to order breakfast. Patient denies further needs at this time.
[2021-08-15 09:22] LABS: HEMATOCRIT 39.4 % (37.0-47.0); HEMOGLOBIN 12.4 g/dl (12.5-16.0); MEAN CELL VOLUME 99 fl (80.0-100.0); MEAN CORPUSCULAR HEMOGLOBIN 31 pg (27.0-31.0); MEAN CORPUSCULAR HGB CONC 32 g/dl (33.0-37.0); MEAN PLATELET VOLUME 9.3 fl (7.4-10.4); PLATELET COUNT 260 K/mm3 (130-400); REDCELL DISTRIBUTION WIDTH-CV 13.3 % (11.5-14.5)
[2021-08-15 09:30] LABS: CALCIUM 8.3 mg/dL (8.4-10.2); CREATININE, serum 1.14 (0.52-1.25); POTASSIUM 4.5 mmol/L (3.4-5.0)
[2021-08-15 09:43] LABS: TROPONIN-I 1.8 ng/mL (0.000-0.035)
[2021-08-15] MEDS ORDERED: PLAVIX 75MG TAB75 MG PO (09:49)
[2021-08-15] MEDS ORDERED: LIPITOR 40MG TA40 MG PO (09:49)
[2021-08-15] MEDS ORDERED: PROTONIX20 MG PO (09:50)
[2021-08-15] MEDS ORDERED: NITROSTAT0.4 MG/TAB SL (09:50)
[2021-08-15] MEDS ORDERED: ASPIRIN E.C. 8181 MG PO (09:51)
[2021-08-15] MEDS ORDERED: TOPROL XL 25MG25 MG PO (09:51)
[2021-08-15] MEDS ORDERED: LASIX 20MG TABL20 MG PO (09:51)
--- NOTE | 2021-08-15 09:52 | NUR ---
Notified Mary ESTRADA of troponin.
[2021-08-15 11:57] VITALS: BP 140/65; PULSE 69; TEMP 97.7
--- NOTE | 2021-08-15 12:50 | NUR ---
Discharge education provided to patient and spouse. Educated on when to call provider and follow up appointments. Educated on all new medications and medication safety. All questions answered. INT to RAC and RF discontinued; catheter tip intact. Denies needs at this time. Patient out by wheelchair with surgical staff and family.
== END 2021-08-15 12:50 | disposition home or self-care (01) | DRG 280 ==
LOC: COL.ER 15:04 → SURG 17:50
PROVIDERS: Physician Assistant; Student in an Organized Health Care Education/Training Program
PROC: 4A023N7 Measurement of Cardiac Sampling and Pressure, Left Heart, Percutaneous Approach (ICD-10-PCS; principal; 2021-08-14)
PROC: B2111ZZ Fluoroscopy of Multiple Coronary Arteries using Low Osmolar Contrast (ICD-10-PCS; 2021-08-14)
PROC: B2181ZZ Fluoroscopy of Left Internal Mammary Bypass Graft using Low Osmolar Contrast (ICD-10-PCS; 2021-08-14)
DX: I21.4 Non-ST elevation (NSTEMI) myocardial infarction (principal); E43 Unspecified severe protein-calorie malnutrition; I13.0 Hypertensive heart and chronic kidney disease with heart failure and stage 1 through stage 4 chronic kidney disease, or unspecified chronic kidney disease; Z68.1 Body mass index [BMI] 19.9 or less, adult; J84.9 Interstitial pulmonary disease, unspecified; I50.20 Unspecified systolic (congestive) heart failure; I25.10 Atherosclerotic heart disease of native coronary artery without angina pectoris; K21.9 Gastro-esophageal reflux disease without esophagitis; E78.5 Hyperlipidemia, unspecified; E87.5 Hyperkalemia; N18.2 Chronic kidney disease, stage 2 (mild); Z90.89 Acquired absence of other organs; Z95.1 Presence of aortocoronary bypass graft
CPT/HCPCS: 99222-AI; 99232-AI; 99239; C1887; J1644; J2250; J3010

== ENCOUNTER 2021-08-28 16:58 | Observation (INO) | payer MEDICARE ==
[~2021-08-28] VITALS: Ht 160 cm; Wt 47.0 kg
[~2021-08-28 16:58] MED LIST changes: +LASIX 20MG TABL20 MG PO; +LIPITOR 40MG TA40 MG PO; +NITROSTAT0.4 MG/TAB SL; +PLAVIX 75MG TAB75 MG PO; +PROTONIX20 MG PO; +TOPROL XL 25MG25 MG PO
[2021-08-28 17:49] LABS: HEMATOCRIT 41.9 % (37.0-47.0); HEMOGLOBIN 13.7 g/dl (12.5-16.0); MEAN CELL VOLUME 95 fl (80.0-100.0); MEAN CORPUSCULAR HEMOGLOBIN 31 pg (27.0-31.0); MEAN CORPUSCULAR HGB CONC 33 g/dl (33.0-37.0); MEAN PLATELET VOLUME 8.8 fl (7.4-10.4); PLATELET COUNT 327 K/mm3 (130-400); RED BLOOD COUNT 4.41 M/mm3 (4.10-5.30); REDCELL DISTRIBUTION WIDTH-CV 12.9 % (11.5-14.5)
[2021-08-28 18:07] LABS: ALBUMIN 3.8 gm/dL (3.4-4.8); BILIRUBIN,TOTAL 0.7 mg/dL (0.2-1.2); C-REACTIVE PROTEIN 0.2 mg/dL (0.00-0.50); CALCIUM 8.5 mg/dL (8.4-10.2); CREATININE, serum 1.61 mg/dL (0.57-1.11); TOTAL PROTEIN 7.1 gm/dL (6.2-8.1)
[2021-08-28 18:15] LABS: COLLECTION METHOD CLEAN CATCH
[2021-08-28 18:23] LABS: MUCOUS Present /lpf; PH 5 (5-8); SQUAMOUS EPITHELIAL None Seen /hpf; URINE APPEARANCE Hazy; URINE BACTERIA Rare /hpf; URINE BILIRUBIN Negative (NEGATIVE); URINE BLOOD Negative (NEGATIVE); URINE COLOR Yellow; URINE GLUCOSE Negative (NEGATIVE); URINE KETONE Negative (NEGATIVE); URINE LEUKOCYTE ESTERASE Trace (NEGATIVE); URINE NITRATE Negative (NEGATIVE); URINE PROTEIN(semi-quant) Negative (NEGATIVE); URINE RBC 0-2 /hpf; URINE UROBILINOGEN Negative (NEGATIVE)
[2021-08-28 18:34] LABS: BAND 2 % (0-10); LYMPHOCYTE 2 % (20.0-51.0); NEUTROPHILS 90 % (42.0-75.2)
[2021-08-28 18:35] LABS: HYPOCHROMIA 1+; PLATELET ESTIMATE NORMAL (NORMAL)
--- NOTE | 2021-08-28 21:53 | NUR ---
Pt. arrived to the floor via wheelchair. Pt. is A&OX3, assessment complete. INT to lt. forearm patent. Pt. reports pain at a 6 on pain scale. Pt. denies futher needs, call light within reach.
[2021-08-28 22:54] VITALS: BP 124/60; PULSE 72; TEMP 98
[2021-08-29 04:27] VITALS: BP 130/54; PULSE 68; TEMP 98.7
[2021-08-29 08:00] VITALS: BP 124/53; PULSE 67; TEMP 98.3
--- NOTE | 2021-08-29 08:00 | NUR ---
PATIENT IS A&O. AT BEDSIDE. VSS. NO C/O PAIN OR NAUSEA THIS AM. PATIENT STATES SHE IS "DOING WELL THIS MORNING". CURRENTLY NPO. IV FLUIDS INFUSING VIA PUMP INTO LEFT FORARM IV. AM MEDS GIVEN WITH SIPS. HEAD TO TOE ASSESSMENT COMPLETE, SEE CHARTING. NO OTHER NEEDS AT THIS TIME. CALL LIGHT IN REACH.
--- NOTE | 2021-08-29 09:37 | NUR ---
AT BEDSIDE VISITING WITH PATIENT &
[2021-08-29 09:49] LABS: BASO # 0.1 (0.0-0.2); BASO % 0.5 % (0.0-2.0); EOS # 0.1 (0.0-0.7); EOS % 0.6 % (0-4.0); GRAN # 10.5 (1.4-6.5); GRAN % 86.5 % (42.2-75.2); LYMPH # 0.8 (1.2-3.4); LYMPH % 6.5 % (20.0-51.0); MEAN CELL VOLUME 94 fl (80.0-100.0); MEAN CORPUSCULAR HGB CONC 33 g/dl (33.0-37.0); MEAN PLATELET VOLUME 8.8 fl (7.4-10.4); MONO # 0.7 (0.1-0.6); MONO % 5.4 % (1.7-9.3); PLATELET COUNT 257 K/mm3 (130-400); RED BLOOD COUNT 3.78 M/mm3 (4.10-5.30)
[2021-08-29 10:04] LABS: HEMATOCRIT 35.7 % (37.0-47.0); HEMOGLOBIN 11.7 g/dl (12.5-16.0); MEAN CORPUSCULAR HEMOGLOBIN 31 pg (27.0-31.0)
[2021-08-29 10:05] LABS: CALCIUM 7.9 mg/dL (8.4-10.2); CREATININE, serum 1.42 mg/dL (0.57-1.11); POTASSIUM 4.1 mmol/L (3.5-4.5)
--- NOTE | 2021-08-29 10:10 | NUR ---
SANTIAGO met with the patient and her , Enrrique (ph#[phone]), to discuss discharge plan and re-admit. The patient recently discharged from the hospital, 08/15, and returned home with her and no services. The patient states that she saw her PCP before re-admit and took her medications as prescribed. The patient began to have lower quadrant abodominal pain associated with nausea and vomiting, she then presented to the ED. The patient lives at [facility] in Independent Living with her , Enrrique. She reports independence with ADLs and has a cane and walker available, if needed. The patient's PCP is Dr. Emmanuel Clayton and she receives her medications from [facility]. She reports no difficulties obtaining her meds. The patient does not have a DPOA-HC, but her reports that he believes she has one completed and that their commercial attorney has a copy of the forms. He states that he is her DPOA-HC. The patient plans to return home with her upon discharge. SANTIAGO discussed home health services. The patient reports she does need home health or is interested in home health at this time. Her was supportive of her decision. SW to follow as needed. *Discharge plan: home with *
--- NOTE | 2021-08-29 10:26 | NUR ---
Initial visit; Patient thanked Truck Driver Heavy for looking in on her this morning and offering God's blessings.
[2021-08-29 11:29] VITALS: BP 115/56; PULSE 63; TEMP 98.3
[2021-08-29 16:00] VITALS: BP 110/53; PULSE 66; TEMP 98.1
[2021-08-29 19:35] VITALS: BP 128/62; PULSE 76; TEMP 98.8
--- NOTE | 2021-08-29 20:00 | NUR ---
PATIENT IS ALERT AND ORIENTED X4.PATIENT HAS IV TO LEFT FOREARM. PATIENT IS ON CLEAR DIET AND 1500 ML FLUID RESTRICTION. PATIENT IS COMPLAINING OF BACHACHE. HOSPITALIST CALLED. ORDERED TYLENOL. PATIENT DENIES PAIN OR FURTHER NEEDS AT THIS TIME. CALL LIGHT WITHIN REACH. HEAD TO TOE ASSESSMENT COMPLETE.
[2021-08-29 23:15] VITALS: BP 105/49; PULSE 62; TEMP 98.3
[2021-08-30 03:11] VITALS: BP 112/56; PULSE 61; TEMP 98
[2021-08-30 06:05] LABS: BASO # 0.1 (0.0-0.2); BASO % 0.8 % (0.0-2.0); EOS # 0.2 (0.0-0.7); EOS % 3.2 % (0-4.0); GRAN # 5.3 (1.4-6.5); GRAN % 72.6 % (42.2-75.2); HEMOGLOBIN 11.5 g/dl (12.5-16.0); LYMPH # 1.2 (1.2-3.4); LYMPH % 15.8 % (20.0-51.0); MEAN CELL VOLUME 94 fl (80.0-100.0); MEAN CORPUSCULAR HEMOGLOBIN 31 pg (27.0-31.0); MEAN CORPUSCULAR HGB CONC 33 g/dl (33.0-37.0); MEAN PLATELET VOLUME 9.1 fl (7.4-10.4); MONO # 0.5 (0.1-0.6); MONO % 7.3 % (1.7-9.3); PLATELET COUNT 260 K/mm3 (130-400); RED BLOOD COUNT 3.74 M/mm3 (4.10-5.30)
[2021-08-30 06:10] LABS: HEMATOCRIT 35.3 % (37.0-47.0)
--- NOTE | 2021-08-30 06:23 | NUR ---
PATIENT DID WELL THROUGHOUT NIGHT. SLEPT MOST OF NIGHT. NO FURTHER NEEDS AT THIS TIME. WILL REPORT TO DAYSHIFT
[2021-08-30 06:38] LABS: CALCIUM 8.1 mg/dL (8.4-10.2); CREATININE, serum 1.23 mg/dL (0.57-1.11); POTASSIUM 3.8 mmol/L (3.5-4.5)
[2021-08-30 07:33] VITALS: BP 140/73; PULSE 68; TEMP 98
--- NOTE | 2021-08-30 10:00 | NUR ---
Patient alert and oriented, answers questions appropriately. Abdomen soft, non tender, minimal distention noted. +Flatus. +Bowel movement. Bowel sounds active x4 quads. No c/o at this time.
[2021-08-30 11:26] VITALS: BP 114/58; PULSE 63; TEMP 97.9
--- NOTE | 2021-08-30 16:01 | NUR ---
Discharge instructions reviewed with patient and spouse, verbalized understanding. Discharged via wheelchair to auto/home with spouse at 1530.
== END 2021-08-30 15:30 | disposition home or self-care (01) ==
LOC: COL.ER 16:58 → SURG 19:29
PROVIDERS: Nurse Practitioner; Physician Assistant; Surgery; ADMIT Family Medicine
DX: R10.31 Right lower quadrant pain (principal); R11.2 Nausea with vomiting, unspecified; K63.89 Other specified diseases of intestine; D72.829 Elevated white blood cell count, unspecified; I25.10 Atherosclerotic heart disease of native coronary artery without angina pectoris; I21.4 Non-ST elevation (NSTEMI) myocardial infarction; I13.0 Hypertensive heart and chronic kidney disease with heart failure and stage 1 through stage 4 chronic kidney disease, or unspecified chronic kidney disease; N18.2 Chronic kidney disease, stage 2 (mild); I50.20 Unspecified systolic (congestive) heart failure; K21.00 Gastro-esophageal reflux disease with esophagitis, without bleeding; D63.1 Anemia in chronic kidney disease; E43 Unspecified severe protein-calorie malnutrition; Z66 Do not resuscitate; Z95.1 Presence of aortocoronary bypass graft; Z79.02 Long term (current) use of antithrombotics/antiplatelets; Z79.899 Other long term (current) drug therapy; Z79.82 Long term (current) use of aspirin
CPT/HCPCS: 99232-AI; 99239; G0378; J0692; J1644; J1956; J2270; J2405; J3010; J7030; J7120

== ENCOUNTER 2021-09-12 18:55 | Emergency (ER) | payer MEDICARE ==
[~2021-09-12] VITALS: Ht 162.6 cm; Wt 39.5 kg
[2021-09-12 19:18] VITALS: TEMP 98.7
[2021-09-12 20:10] LABS: BASO # 0.1 K/mm3 (0.0-0.2); BASO % 1.1 % (0.0-2.0); EOS # 0.1 K/mm3 (0.0-0.7); EOS % 1.7 % (0-4.0); GRAN # 5.4 K/mm3 (1.4-6.5); GRAN % 74.8 % (42.2-75.2); HEMATOCRIT 38.7 % (37.0-47.0); HEMOGLOBIN 12.3 g/dl (12.5-16.0); LYMPH # 1.1 K/mm3 (1.2-3.4); LYMPH % 14.6 % (20.0-51.0); MEAN CELL VOLUME 96 fl (80.0-100.0); MEAN CORPUSCULAR HEMOGLOBIN 30 pg (27.0-31.0); MEAN CORPUSCULAR HGB CONC 32 g/dl (33.0-37.0); MEAN PLATELET VOLUME 8.7 fl (7.4-10.4); MONO # 0.5 K/mm3 (0.1-0.6); MONO % 7.5 % (1.7-9.3); PLATELET COUNT 282 K/mm3 (130-400); RED BLOOD COUNT 4.05 M/mm3 (4.10-5.30)
[2021-09-12 20:21] LABS: ALANINE AMINOTRANSFERASE 42 U/L (0-55); ALBUMIN 3.5 gm/dL (3.4-4.8); ALKALINE PHOSPHATASE 86 U/L (0-750); ANION GAP 10 mmol/L (7-16); AST,SGOT 41 U/L (5-34); BILIRUBIN,TOTAL 0.7 mg/dL (0.2-1.2); BLOOD UREA NITROGEN 16 mg/dL (10-20); CALCIUM 8.6 mg/dL (8.4-10.2); CARBON DIOXIDE 20 mmol/L (23-31); CHLORIDE 105 mmol/L (98-107); CREATININE, serum 1.53 mg/dL (0.57-1.11); GLUCOSE 101 mg/dL (70-99); LIPASE 39 U/L (8-78); POTASSIUM 4.6 mmol/L (3.5-4.5); SODIUM 135 mmol/L (136-145); TOTAL PROTEIN 6.4 gm/dL (6.2-8.1)
[2021-09-12 20:29] LABS: C-REACTIVE PROTEIN < 0.02 mg/dL (0.00-0.50)
[2021-09-12] MEDS ORDERED: DULCOLAX STOOL100 MG PO (21:55)
[2021-09-12] MEDS ORDERED: NORCO 325 MG-51 TAB PO (21:55)
[2021-09-12 22:17] VITALS: BP 165/85; PULSE 62
== END 2021-09-12 22:21 | disposition home or self-care (01) ==
LOC: COL.ER 18:55
PROVIDERS: Nurse Practitioner
DX: R10.31 Right lower quadrant pain (principal); I12.9 Hypertensive chronic kidney disease with stage 1 through stage 4 chronic kidney disease, or unspecified chronic kidney disease; N18.2 Chronic kidney disease, stage 2 (mild); I25.10 Atherosclerotic heart disease of native coronary artery without angina pectoris; Z79.82 Long term (current) use of aspirin; Z79.899 Other long term (current) drug therapy
CPT/HCPCS: J3010

== ENCOUNTER 2021-12-11 15:04 | Observation (INO) | payer MEDICARE ==
[~2021-12-11] VITALS: Ht 157.5 cm; Wt 42.5 kg
[~2021-12-11 15:04] MED LIST changes: +DULCOLAX STOOL100 MG PO; +NORCO 325 MG-51 TAB PO
[2021-12-11 17:25] LABS: BASO # 0.1 K/mm3 (0.0-0.2); BASO % 0.4 % (0.0-2.0); EOS % 0.2 % (0.0-4.0); GRAN # 11.2 K/mm3 (1.4-6.5); GRAN % 88.9 % (42.2-75.2); HEMOGLOBIN 11.2 g/dl (12.5-16.0); LYMPH # 0.6 K/mm3 (1.2-3.4); LYMPH % 4.7 % (20.0-51.0); MEAN CELL VOLUME 95 fl (80.0-100.0); MEAN CORPUSCULAR HEMOGLOBIN 32 pg (27-31); MEAN CORPUSCULAR HGB CONC 34 g/dl (33.0-37.0); MEAN PLATELET VOLUME 8.9 fl (7.4-10.4); MONO # 0.7 K/mm3 (0.1-0.6); MONO % 5.2 % (1.7-9.3); PLATELET COUNT 284 K/mm3 (130-400); RED BLOOD COUNT 3.49 M/mm3 (4.10-5.30); REDCELL DISTRIBUTION WIDTH-CV 14.6 % (11.5-14.5)
[2021-12-11 17:28] LABS: HEMATOCRIT 33.3 % (37.0-47.0)
[2021-12-11 17:48] LABS: ALBUMIN 2.7 gm/dL (3.4-4.8); BILIRUBIN,TOTAL 0.9 mg/dL (0.2-1.2); CALCIUM 7.6 mg/dL (8.4-10.2); CREATININE, serum 1.23 mg/dL (0.57-1.11); POTASSIUM 3.9 mmol/L (3.5-4.5); TOTAL PROTEIN 5.4 gm/dL (6.2-8.1)
[2021-12-11 22:31] LABS: COLLECTION METHOD CLEAN CATCH
[2021-12-11 22:43] LABS: MUCOUS Present (NOT PRESENT); PH 5 (5-8); SQUAMOUS EPITHELIAL 0-2 /hpf (0-10); URINE APPEARANCE Hazy (CLEAR/HAZY); URINE BACTERIA Moderate /hpf (NONE SEEN); URINE BILIRUBIN Negative (NEGATIVE); URINE BLOOD Negative (NEGATIVE); URINE COLOR Yellow (YELLOW); URINE GLUCOSE Negative (NEGATIVE); URINE KETONE Negative (NEGATIVE); URINE LEUKOCYTE ESTERASE Trace (NEGATIVE); URINE NITRATE Negative (NEGATIVE); URINE PROTEIN(semi-quant) Negative (NEGATIVE); URINE RBC 0-2 /hpf (0-2); URINE UROBILINOGEN Negative (NEGATIVE)
[2021-12-11 22:55] VITALS: BP 161/68; PULSE 77; TEMP 97.8
--- NOTE | 2021-12-11 23:47 | NUR ---
Patient arrived to surgical unit from ER. Assessment complete. Alert and oriented x 4, and able to make needs known. Patient reported pain to left hip, rated as a 6 after transferring into bed. Denies pain and this time. Peripheral INT to right forearm. Has bruising to face, BUE, BLE. LS CTA. HRR. BSAx4. 1+ edema to bilateral ankles/feet. Reports she does not know her medications, as her is the one who helps her with those. PA is working on getting medication list. Offered patient catheter, purewick, or bedpan for urination. Patient requested purewick, and put on. Patient in bed with call light within reach. Bed alarm on.
[2021-12-11 23:50] VITALS: BP 148/64
[2021-12-12 03:43] VITALS: BP 147/62; PULSE 67; TEMP 97.2
--- NOTE | 2021-12-12 05:59 | NUR ---
Patient has received scheduled Acetaminophen, and also received PRN Morphine once this shift for pain to left hip. Patient did not have any output in purewick. Patient tried to use bedpan but unable to. On bladder scan, patien showed greater than 750 mls for urine in her bladder. Talked to patient about completed a straight cath vs leaving a cruz in place. Patient stated that she wanted to avoid having a cruz in place if possible, but was ok with straight catheterization. Call placed to NATALIE Gunderson, and order recieved to straight cath. Procedure performed per protocol. Patient had 950 mls of yellow urine with straight cath. Patient voices no further questions, needs, or concerns at this time. In bed with call light within reach.
[2021-12-12 07:03] LABS: BASO % 0.5 % (0.0-2.0); EOS # 0.2 K/mm3 (0.0-0.7); EOS % 1.9 % (0.0-4.0); GRAN # 6.3 K/mm3 (1.4-6.5); GRAN % 81.2 % (42.2-75.2); HEMOGLOBIN 10.4 g/dl (12.5-16.0); LYMPH # 0.8 K/mm3 (1.2-3.4); LYMPH % 9.6 % (20.0-51.0); MEAN CELL VOLUME 96 fl (80.0-100.0); MEAN CORPUSCULAR HEMOGLOBIN 32 pg (27-31); MEAN CORPUSCULAR HGB CONC 34 g/dl (33.0-37.0); MONO # 0.5 K/mm3 (0.1-0.6); MONO % 6.5 % (1.7-9.3); PLATELET COUNT 256 K/mm3 (130-400); RED BLOOD COUNT 3.23 M/mm3 (4.10-5.30); REDCELL DISTRIBUTION WIDTH-CV 14.6 % (11.5-14.5)
[2021-12-12 07:15] LABS: CALCIUM 7.8 mg/dL (8.4-10.2); CREATININE, serum 1.1 mg/dL (0.57-1.11); POTASSIUM 3.9 mmol/L (3.5-4.5)
--- NOTE | 2021-12-12 07:30 | NUR ---
PATIENT IS A&O. IS AT BEDISDE. VSS. PATIENT DENIES PAIN AT REST. SCHEDULED AM TYLENOL GIVEN. HEAD TO TOE ASSESSMENT COMPLETE. ASKING ABOUT GOING TO [facility] FOR SKILLED CARE AND THERAPY. PATIENT HAS A HX OF FALLING X6. NOTED SPARATIC OLD BRUISING ALL OVER EXTREMITIES AND AROUND HER MOUTH. NURSING REFFERED TO HOSPITALIST TEAM REGUARDING DISCHARGE PLANS. NO OTHER NEEDS AT THIS TIME. CALL LIGHT IN REACH.
[2021-12-12 08:08] VITALS: BP 152/74; PULSE 76; TEMP 98
--- NOTE | 2021-12-12 09:10 | NUR ---
TALKED WITH PT. PLAN IS TO OBTAIN ORTHO STATIC B/P WHEN PT GETS PATIENT UP. NURSING & PT DISCUSSED THIS PLAN.
--- NOTE | 2021-12-12 09:19 | NUR ---
SANTIAGO met with patient to discuss discharge plan. Patient's Enrrique ([phone]) present at bedside. Patient and her live at [facility]. Up until this fall the patient has been fully independent and helps her with his ADL's. Patient states that she has both a cane and a walker to assist with mobility but doesn't use them. Patient reports to no oxygen needs at home. PCP is Dr. Emmanuel Clayton and they utilize [facility] for medications with no cost difficulty. Patient reports that they do have a DPOA-HC established and that they have a copy of it at home. Enrrique reports that they have been meaning to get a copy to [facility] but they haven't yet. Discussed with the patient that PT/OT have been ordered and that depending on their eval's she may need some skilled rehab. Patient's verbalizes that he would like the patient to go to the [facility] before coming back home. Patient is open to this plan. Collaborated with PT on their wishes. Discharge plan: Possibly [facility] SNF
--- NOTE | 2021-12-12 09:34 | NUR ---
Initial visit; Patient thanked Docent Coordinator for looking in on her and offering God's blessings and for keeping her in Docent Coordinator's prayers.
[2021-12-12 09:46] VITALS: BP 146/65
--- NOTE | 2021-12-12 11:29 | NUR ---
SANTIAGO attended rounding. Patient's unable to provided what the patient's current medications are. SANTIAGO contacts [facility], the patient's pharmacy, and requests a copy of the patient's medication list. SANTIAGO asks Nelida at [facility] to investigate if the patient has bought into courtesy day's and if so how many should the patient be downgraded.
[2021-12-12] MEDS ORDERED: REGLAN 5MG T5 MG/TAB PO ×2 (11:45→12:34)
[2021-12-12] MEDS ORDERED: ATARAX 25MG25 MG/TAB PO ×2 (11:46→12:31)
[2021-12-12 12:00] VITALS: BP 116/87; PULSE 69; TEMP 98.4
--- NOTE | 2021-12-12 12:00 | NUR ---
HOSPITALIST TEAM ROUNDING, PHARMACY CONTACTED FOR CURRENT MED LIST DIDN'T KNOW MEDS AND DIDN'T HAVE A CURRENT MED LIST. RN AT BEDSIDE TO GIVE DAILY MEDS, PATIENT WAS JUST ABOUT TO TAKE MEDS WHEN SAID HE HAD BROUGHT HER HOME MEDS AND GAVE THEM TO HER THIS AM WITHOUT TELLING STAFF. VERBALIZED HE KNEW THIS WENT AGAINST HOSPITAL POLICY BUT DIDN'T WANT HER TO MISS HER DOSES. NURSING EDUCATED ABOUT MEDICATION SAFETY & RISK. 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 HOSPITALIST TEAM NOTIFIED. NO HOME MEDS TO BE GIVEN BY RN TODAY COULD NOT TELL US WHICH ONES HE GAVE. THE PATIENT'S DAILY MEDS WERE IN A MONTHLY CONTAINER.
[2021-12-12] MEDS ORDERED: TOPROL XL 25MG25 MG PO (12:30)
[2021-12-12] MEDS ORDERED: ASPIRIN E.C. 8181 MG PO (12:30)
[2021-12-12] MEDS ORDERED: LIPITOR 40MG TA40 MG PO (12:30)
[2021-12-12] MEDS ORDERED: NITROSTAT0.4 MG/TAB SL (12:30)
[2021-12-12] MEDS ORDERED: PLAVIX 75MG TAB75 MG PO (12:30)
[2021-12-12] MEDS ORDERED: NORCO 325 MG-51 TAB PO (12:30)
[2021-12-12] MEDS ORDERED: DULCOLAX STOOL100 MG PO (12:31)
[2021-12-12] MEDS ORDERED: MULTIVITAMIN FO1 CAP PO (12:31)
[2021-12-12] MEDS ORDERED: PROTONIX20 MG PO (12:31)
--- NOTE | 2021-12-12 13:48 | NUR ---
wireworker supervisor notified that the patient has 12 courtesy day's available. She can double them up where (6) full day's would be covered at 100% or the patient can go for 12 day's with 1/2 of the day being covered under her courtesy day's and the other 1/2 be paid for OOP (approx. $140 per day). These options were presented to the patient and the patient's , both who state that they are willing do do either. Informed the patient and her that she would be going to [facility] instead of [facility]. Physician staff and patient's RN notified. All are in agreement of the patient going back to [facility] today for skilled care. Clinical updates and discharge orders faxed to Nelida at [facility]. Nelida will arrange a transportation time and get back with me. Discharge plan: [facility] skilled
--- NOTE | 2021-12-12 14:29 | NUR ---
Corazon with [facility] states that transportation can pick the patient up at 1500 today. Notified patient's RN and community services manager and are in agreement to this plan. Notified Nelida that the patient has a wheelchair from [facility] and they would not need to bring one.
--- NOTE | 2021-12-12 15:30 | NUR ---
PATIENT DISCHARGING TO [facility] VIA VAN SERVICE. INFO PACKET GIVEN TO GASOLINE DRAGLINE OPERATOR. CALLED REPORT TO [facility] NURSE. PCT DC'D IV SITE AND COVERED WITH BANDAID. PATIENT IS DRESSED, PACKED AND DISCHARGED.
== END 2021-12-12 15:30 ==
LOC: COL.ER 15:04 → SURG 19:34
PROVIDERS: Personal Emergency Response Attendant; Student in an Organized Health Care Education/Training Program; ADMIT Internal Medicine
DX: S32.10XA Unspecified fracture of sacrum, initial encounter for closed fracture (principal); S52.502A Unspecified fracture of the lower end of left radius, initial encounter for closed fracture; R53.81 Other malaise; R29.6 Repeated falls; I95.1 Orthostatic hypotension; D72.828 Other elevated white blood cell count; I25.10 Atherosclerotic heart disease of native coronary artery without angina pectoris; R60.0 Localized edema; I13.0 Hypertensive heart and chronic kidney disease with heart failure and stage 1 through stage 4 chronic kidney disease, or unspecified chronic kidney disease; I50.20 Unspecified systolic (congestive) heart failure; N26.1 Atrophy of kidney (terminal); K63.89 Other specified diseases of intestine; N32.89 Other specified disorders of bladder; I25.2 Old myocardial infarction; D64.9 Anemia, unspecified; K21.9 Gastro-esophageal reflux disease without esophagitis; Z95.1 Presence of aortocoronary bypass graft; Z79.891 Long term (current) use of opiate analgesic; Z20.822 Contact with and (suspected) exposure to COVID-19; Z79.899 Other long term (current) drug therapy; Z79.02 Long term (current) use of antithrombotics/antiplatelets
CPT/HCPCS: 99223-AI; G0378; J2270; J2405; J7040

== ENCOUNTER 2022-03-31 14:05 | Emergency (ER) | payer MEDICARE ==
[~2022-03-31] VITALS: Ht 162.6 cm; Wt 39.5 kg
[~2022-03-31 14:05] MED LIST changes: +ATARAX 25MG25 MG/TAB PO; +REGLAN 5MG T5 MG/TAB PO
[2022-03-31 14:38] VITALS: BP 127/56; TEMP 98.3
[2022-03-31 16:23] LABS: BASO % 0.5 % (0.0-2.0); EOS % 0.3 % (0.0-4.0); GRAN # 6.4 K/mm3 (1.4-6.5); GRAN % 83.2 % (42.2-75.2); HEMOGLOBIN 11.5 g/dl (12.5-16.0); LYMPH # 0.5 K/mm3 (1.2-3.4); LYMPH % 6.5 % (20.0-51.0); MEAN CELL VOLUME 97 fl (80.0-100.0); MEAN CORPUSCULAR HEMOGLOBIN 31 pg (27-31); MEAN CORPUSCULAR HGB CONC 32 g/dl (33.0-37.0); MEAN PLATELET VOLUME 9.4 fl (7.4-10.4); MONO # 0.7 K/mm3 (0.1-0.6); MONO % 9.2 % (1.7-9.3); PLATELET COUNT 322 K/mm3 (130-400); RED BLOOD COUNT 3.67 M/mm3 (4.10-5.30); REDCELL DISTRIBUTION WIDTH-CV 12.3 % (11.5-14.5)
[2022-03-31 16:27] LABS: HEMATOCRIT 35.7 % (37.0-47.0)
[2022-03-31 16:41] LABS: ALBUMIN 3.6 gm/dL (3.4-4.8); BILIRUBIN,TOTAL 0.8 mg/dL (0.2-1.2); CALCIUM 7.9 mg/dL (8.4-10.2); CREATININE, serum 1.74 mg/dL (0.57-1.11); POTASSIUM 4.6 mmol/L (3.5-4.5); TOTAL PROTEIN 6.7 gm/dL (6.2-8.1); URIC ACID 6.3 mg/dL (2.6-6.0)
[2022-03-31 18:27] VITALS: PULSE 46
[2022-04-03] MEDS ORDERED: NORVASC 5MG5 MG/TAB PO (10:52)
[2022-04-03] MEDS ORDERED: LASIX 20MG TABL20 MG PO (10:52)
[2022-04-03] MEDS ORDERED: PLAVIX 75MG TAB75 MG PO (10:53)
[2022-04-03] MEDS ORDERED: KAPSPARGO SPRIN25 MG PO (10:55)
[2022-04-03] MEDS ORDERED: LIPITOR 40MG TA40 MG PO (10:56)
[2022-04-03] MEDS ORDERED: PROTONIX20 MG PO (10:56)
[2022-04-03] MEDS ORDERED: DULOXETINE HCL40 MG PO (10:57)
[2022-04-03] MEDS ORDERED: ASPIRIN 81M81 MG/TA2 PO (10:58)
[2022-04-03] MEDS ORDERED: DIOVAN 160MG160 MG PO (10:58)
[2022-04-03] MEDS ORDERED: ATARAX 25MG25 MG/TAB PO (10:59)
[2022-04-03] MEDS ORDERED: NITROSTAT0.4 MG/TAB SL (11:00)
[2022-04-04] MEDS ORDERED: CEPHALEXIN500 M1 PO (10:30)
== END 2022-03-31 18:27 | disposition home or self-care (01) ==
LOC: COL.ER 14:05
PROVIDERS: Nurse Practitioner Family
DX: N17.9 Acute kidney failure, unspecified (principal); M79.672 Pain in left foot

== ENCOUNTER 2022-04-10 16:59 | Inpatient (IN) | payer MEDICARE ==
[~2022-04-10] VITALS: Ht 162.6 cm; Wt 42.2 kg
[~2022-04-10 16:59] MED LIST changes: +ASPIRIN 81M81 MG/TA2 PO; +CEPHALEXIN500 M1 PO; +DIOVAN 160MG160 MG PO; +DULOXETINE HCL40 MG PO; +KAPSPARGO SPRIN25 MG PO
[2022-04-10 17:22] LABS: BASO % 0.5 % (0.0-2.0); EOS # 0.2 K/mm3 (0.0-0.7); EOS % 2.9 % (0.0-4.0); GRAN % 76.7 % (42.2-75.2); LYMPH # 0.8 K/mm3 (1.2-3.4); LYMPH % 12.1 % (20.0-51.0); MEAN CELL VOLUME 98 fl (80.0-100.0); MEAN CORPUSCULAR HGB CONC 32 g/dl (33.0-37.0); MEAN PLATELET VOLUME 8.8 fl (7.4-10.4); MONO # 0.5 K/mm3 (0.1-0.6); MONO % 7.3 % (1.7-9.3); PLATELET COUNT 292 K/mm3 (130-400); REDCELL DISTRIBUTION WIDTH-CV 12.7 % (11.5-14.5)
[2022-04-10 17:25] LABS: HEMATOCRIT 30.5 % (37.0-47.0); HEMOGLOBIN 9.6 g/dl (12.5-16.0); MEAN CORPUSCULAR HEMOGLOBIN 31 pg (27-31)
[2022-04-10 17:40] LABS: ALBUMIN 3.7 gm/dL (3.4-4.8); BILIRUBIN,TOTAL 1.1 mg/dL (0.2-1.2); C-REACTIVE PROTEIN 2.25 mg/dL (0.00-0.50); CREATININE, serum 1.59 mg/dL (0.57-1.11); POTASSIUM 4.4 mmol/L (3.5-4.5); TOTAL PROTEIN 7.1 gm/dL (6.2-8.1)
[2022-04-10 18:18] LABS: COLLECTION METHOD CLEAN CATCH
[2022-04-10 18:28] LABS: PH 7 (5-8); SQUAMOUS EPITHELIAL None Seen /hpf (0-10); URINE APPEARANCE Hazy (CLEAR/HAZY); URINE BACTERIA None Seen /hpf (NONE SEEN); URINE BILIRUBIN Negative (NEGATIVE); URINE BLOOD Negative (NEGATIVE); URINE COLOR Yellow (YELLOW); URINE GLUCOSE Negative (NEGATIVE); URINE KETONE Negative (NEGATIVE); URINE LEUKOCYTE ESTERASE 1+ (NEGATIVE); URINE NITRATE Negative (NEGATIVE); URINE PROTEIN(semi-quant) Negative (NEGATIVE); URINE RBC 0-2 /hpf (0-2)
--- NOTE | 2022-04-10 21:45 | NUR ---
RECEIVED REPORT FROM LIO Mcwilliams RN. WAITING FOR PATIENT ARRIVAL TO ROOM 315 FOR ADMIT TO UNIT.
--- NOTE | 2022-04-10 22:10 | NUR ---
PATIENT ARRIVED, ADMIT TO ROOM 315 VIA E.R. CART WITH E.D. STAFF PRESENT/TRANSPORTING PATIENT. PATIENT CLEANED UP OF INCONTINENT STOOL. RESTING WITH EYE CLOSED. TELE IN PLACE. QUINTEROS CATH TO DD IN PLACE, DRAINING WITH NO PROBLEMS.
[2022-04-10 22:28] VITALS: BP 165/78; PULSE 76; TEMP 98.1
[2022-04-11] VITALS: BP 170/76; PULSE 75; TEMP 98.1
--- NOTE | 2022-04-11 00:17 | NUR ---
PER PCT, PATIENT VOMITED APPROX 50 ML GREENISH LIQUID, REPORTS SOME NAUSEA STILL.
--- NOTE | 2022-04-11 04:19 | NUR ---
APPLIED [employer] DRSG TO COCCYX FOR PROTECTION, AFTER INFORMING PATIENT OF PLAN TO PLACE DRSG TO PROTECT SKIN TO AREA. NO OTHER QUESTIONS/CONCERNS REPORTED BY PATIENT.
[2022-04-11 04:59] VITALS: BP 142/73; PULSE 80; TEMP 98.3
[2022-04-11 06:19] LABS: BASO % 0.3 % (0.0-2.0); EOS # 0.1 K/mm3 (0.0-0.7); EOS % 1.8 % (0.0-4.0); GRAN # 4.9 K/mm3 (1.4-6.5); GRAN % 79.5 % (42.2-75.2); LYMPH # 0.6 K/mm3 (1.2-3.4); LYMPH % 9.4 % (20.0-51.0); MEAN CELL VOLUME 100 fl (80.0-100.0); MEAN CORPUSCULAR HGB CONC 31 g/dl (33.0-37.0); MEAN PLATELET VOLUME 8.9 fl (7.4-10.4); MONO # 0.5 K/mm3 (0.1-0.6); MONO % 8.4 % (1.7-9.3); PLATELET COUNT 223 K/mm3 (130-400); REDCELL DISTRIBUTION WIDTH-CV 12.7 % (11.5-14.5)
[2022-04-11 06:24] LABS: HEMOGLOBIN 7.4 g/dl (12.5-16.0); MEAN CORPUSCULAR HEMOGLOBIN 31 pg (27-31)
[2022-04-11 06:42] LABS: BILIRUBIN,TOTAL 0.7 mg/dL (0.2-1.2); CALCIUM 8.1 mg/dL (8.4-10.2); CREATININE, serum 1.62 mg/dL (0.57-1.11); MAGNESIUM 1.4 mg/dL (1.6-2.6); POTASSIUM 4.4 mmol/L (3.5-4.5); TOTAL PROTEIN 5.9 gm/dL (6.2-8.1)
--- NOTE | 2022-04-11 06:49 | NUR ---
CHANGE OF SHIFT REPORT GIVEN TO DAY SHIFT RNLUIS.
--- NOTE | 2022-04-11 07:04 | NUR ---
Contacted patient's spouse, Enrrique, to review med rec with Enrrique stating he no longer has his list of patient's med and whatever meds she has listed in the med rec from last week when patient was in the hospital for her procedure the meds have not change.
[2022-04-11 07:45] VITALS: BP 143/67; PULSE 69; TEMP 98.2
--- NOTE | 2022-04-11 11:21 | NUR ---
Assessment completed, alert/oriented, vital signs stable, reports still having some generalized abd discomfort, denies any nausea/vomitting, adavanced her diet to CL and she is tolerating so far, BS are hypoactive and patient denies passing any gas, heart RRR, distal pulses are palapble, lungs CTA/ no resp.difficulty, discussed plan of care with patient and her , denies othe needs at this time
[2022-04-11 11:37] VITALS: BP 139/57; PULSE 73; TEMP 99
--- NOTE | 2022-04-11 14:43 | NUR ---
Statistical Developer met with patient to discuss discharge planning. Patient lives at [facility] in an Independent Living apartment with her , Enrrique (ph#[phone]). Patient sees Dr. Clayton for primary care and obtains medications from [facility]. Patient uses a walker for ambulation and reports she has in home services from [facility]. Patient reports needing assistance with bathing, which she gets from . Patient states she is unsure if she has a DPOA-HC. SANTIAGO reviewed PT/OT evaluation then contacted patient's , Enrrique who advised Richie at [facility] called him and his understanding is that patient may need to go to SNF at time of discharge. Enrrique is in agreement with this. SANTIAGO contacted Richie and faxed a referral. Discharge Plan: [facility]
[2022-04-11 15:38] VITALS: BP 159/66; PULSE 75; TEMP 98.4
[2022-04-11 16:07] LABS: HEMATOCRIT 25.2 % (37.0-47.0); HEMOGLOBIN 7.9 g/dl (12.5-16.0)
[2022-04-11 19:40] VITALS: BP 169/73; PULSE 82; TEMP 99.1
[2022-04-12 00:23] VITALS: BP 160/72; PULSE 82; TEMP 98.7
[2022-04-12 04:34] VITALS: BP 143/68; PULSE 84; TEMP 98.5
[2022-04-12 06:18] LABS: BASO % 0.3 % (0.0-2.0); EOS # 0.2 K/mm3 (0.0-0.7); EOS % 3.5 % (0.0-4.0); GRAN # 5.6 K/mm3 (1.4-6.5); GRAN % 82.8 % (42.2-75.2); LYMPH # 0.5 K/mm3 (1.2-3.4); LYMPH % 6.8 % (20.0-51.0); MEAN CELL VOLUME 100 fl (80.0-100.0); MEAN CORPUSCULAR HGB CONC 31 g/dl (33.0-37.0); MEAN PLATELET VOLUME 8.9 fl (7.4-10.4); MONO # 0.4 K/mm3 (0.1-0.6); MONO % 6.2 % (1.7-9.3); PLATELET COUNT 238 K/mm3 (130-400); RED BLOOD COUNT 2.65 M/mm3 (4.10-5.30); REDCELL DISTRIBUTION WIDTH-CV 12.9 % (11.5-14.5)
[2022-04-12 06:20] LABS: HEMATOCRIT 26.5 % (37.0-47.0); HEMOGLOBIN 8.3 g/dl (12.5-16.0); MEAN CORPUSCULAR HEMOGLOBIN 31 pg (27-31)
[2022-04-12 06:28] LABS: CALCIUM 8.1 mg/dL (8.4-10.2); CREATININE, serum 1.3 mg/dL (0.57-1.11); POTASSIUM 4.6 mmol/L (3.5-4.5)
[2022-04-12 07:41] VITALS: BP 157/64; PULSE 77; TEMP 98.1
--- NOTE | 2022-04-12 08:04 | NUR ---
Assessment completed, alert/oriented, vital signs stable, reporting more pain this morning than yesterday, she does report also feeling nauseated but more so that it "just hurts", abd is rounded and BS are hypoactive throughout, she indicates she is still tolerating clear liquid diet without any emesis, denies passing any gas or stool, awaiting further recs from , will continue to monitor
--- NOTE | 2022-04-12 09:47 | NUR ---
The patient was downgraded to observation status. SANTIAGO and appetizer packer, Nora, met with the patient to notify. The patient requested that we present and go over the form with her , Enrrique. She states that he might be coming in today. SANTIAGO attempted to contact Enrrique. His number went straight to voicemail and his voicemail has not been set up yet. SANTIAGO was unable to leave a message. [facility] was notified of the patient being downgraded. SANTIAGO faxed the patient's records to [facility] for auth on SNF. Awaiting insurance approval/denial.
--- NOTE | 2022-04-12 10:39 | NUR ---
The patient's , Enrrique, arrived to the hospital. SANTIAGO and watershed coordinator, Nora, met with the patient to notify of the patient being downgraded to observation. Nora and SANTIAGO answered all questions. SANTIAGO presented and read the Medicare Outpatient Observation Notice Form to Enrrique. Enrrique verbalized understanding and signed the form. SANTIAGO provided him with a copy. SANTIAGO updated Enrrique how we and [facility] have submitted the patient's information to insurance and are just awaiting their decision. Enrrique verbalized understanding.
[2022-04-12 11:22] VITALS: BP 157/73; PULSE 84; TEMP 98.9
--- NOTE | 2022-04-12 12:39 | NUR ---
First visit from the automotive finance manager. No needs right now.
--- NOTE | 2022-04-12 13:34 | NUR ---
The patient was upgraded to inpatient status. SW notified Ming at [facility]. Ming states that they are also working on insurance auth.
--- NOTE | 2022-04-12 15:13 | NUR ---
SW received a call from a [facility] entry level marketing representative. The rep states that they received [facility]'s request. She states that they sent the patient's records to their diploma medical assistant and that the patient will likely not be approved for SNF, due to walking 150 ft. Will await final decision.
[2022-04-12 15:55] VITALS: BP 184/93; PULSE 83; TEMP 98.2
--- NOTE | 2022-04-12 16:16 | NUR ---
The [facility] contacted this SW back. She states that their site medical director is requesting a [id number]. The deadline is tomorrow at 1100. SANTIAGO notified the PA and provided her with the phone number for the [id number].
[2022-04-12 20:00] VITALS: BP 153/80; PULSE 84; TEMP 99.2
--- NOTE | 2022-04-12 20:00 | NUR ---
Patient is resting in bed, alert and oriented, states some pain in her abdoment and asked for tylenol. Provided. Telemetry in place, paced. Receiving NS AT 50ML/HR. Assessment completed, meds provided. No other needs at this time. Call light within reach.
[2022-04-13 00:24] VITALS: BP 159/74; PULSE 90; TEMP 98.7
[2022-04-13 04:00] VITALS: BP 153/70; PULSE 88; TEMP 99.2
[2022-04-13 07:54] VITALS: BP 148/65; PULSE 88; TEMP 98.7
--- NOTE | 2022-04-13 08:45 | NUR ---
PT LAYING SUPINE IN BED ON ROOM AIR. PT STATES THAT SHE WAS ABLE TO HAVE A "PRETTY GOOD SIZE" STOOL A LITTLE BIT AGO. PT STATES THAT SHE IS NOT HAVING ANY PAIN AT ALL. PT STATES NO NEEDS OR CONCRENS AT THIS TIME. CALL LIGHT IS WITHIN REACH.
[2022-04-13 08:51] LABS: MEAN CELL VOLUME 101 fl (80.0-100.0); MEAN CORPUSCULAR HGB CONC 31 g/dl (33.0-37.0); MEAN PLATELET VOLUME 8.7 fl (7.4-10.4); PLATELET COUNT 219 K/mm3 (130-400); REDCELL DISTRIBUTION WIDTH-CV 12.9 % (11.5-14.5)
[2022-04-13 08:52] LABS: HEMATOCRIT 25.3 % (37.0-47.0); HEMOGLOBIN 7.8 g/dl (12.5-16.0); MEAN CORPUSCULAR HEMOGLOBIN 31 pg (27-31)
[2022-04-13 09:09] LABS: CALCIUM 7.8 mg/dL (8.4-10.2); CREATININE, serum 1.16 mg/dL (0.57-1.11); MAGNESIUM 1.6 mg/dL (1.6-2.6); POTASSIUM 4.5 mmol/L (3.5-4.5)
[2022-04-13 09:25] LABS: BAND 7 % (0-10); EOSINOPHIL 1 % (0-4); PLATELET ESTIMATE NORMAL (NORMAL)
[2022-04-13 09:26] LABS: HYPOCHROMIA 1+; LYMPHOCYTE 2 % (20.0-51.0); NEUTROPHILS 87 % (42.0-75.2)
[2022-04-13 11:13] VITALS: BP 127/57; PULSE 90; TEMP 98.7
[2022-04-13] MEDS ORDERED: AMOXICILLIN 8751 TAB PO (13:55)
[2022-04-13] MEDS ORDERED: PLAVIX 75MG TAB75 MG PO (13:56)
[2022-04-13] MEDS ORDERED: LIPITOR 40MG TA40 MG PO (13:56)
[2022-04-13] MEDS ORDERED: NITROSTAT0.4 MG/TAB SL (13:57)
[2022-04-13] MEDS ORDERED: TYLENOL 500MG500 MG PO (13:57)
[2022-04-13] MEDS ORDERED: ASPIRIN 81M81 MG/TA2 PO (13:57)
[2022-04-13] MEDS ORDERED: MIRALAX PA17 GM/Dose PO (13:58)
[2022-04-13] MEDS ORDERED: DULOXETINE HCL40 MG PO (13:58)
[2022-04-13] MEDS ORDERED: METAMUCIL3.4 GM/DOS PO (13:58)
[2022-04-13] MEDS ORDERED: LASIX 20MG TABL20 MG PO (13:58)
[2022-04-13] MEDS ORDERED: PROTONIX20 MG PO (13:59)
[2022-04-13] MEDS ORDERED: DULCOLAX S10 MG/SUPP RC (13:59)
[2022-04-13] MEDS ORDERED: MAG-OX 400400 MG/TAB PO (14:12)
--- NOTE | 2022-04-13 14:28 | NUR ---
SANTIAGO followed up with the clinical team about the [id number]. The [id number] was done and insurance is denying SNF. SANTIAGO met with the patient and her , Enrrique, to update. SANTIAGO discussed the option of private paying at [facility] or going home with home health. Enrrique states that they would like to pursue with the patient going to [facility] SNF and that he is okay with private paying. SANTIAGO notified and faxed updates to Ming at [facility]. Ming states that they are able to accept the patient today. The patient is to discharge today, 04/13, to [facility] for a private pay skilled stay. Transportation was scheduled at 1500, via [facility]. SANTIAGO informed the patient, her , and RN of the time. No additional needs at this time.
--- NOTE | 2022-04-13 15:04 | NUR ---
CALLED REPORT TO CATRACHITO YE AT [facility] ALL QUESTIONS ANSWERED.
== END 2022-04-13 15:00 | DRG 389 ==
LOC: COL.ER 16:59 → MEDICAL 19:34
PROVIDERS: Physician Assistant; Student in an Organized Health Care Education/Training Program; ADMIT Internal Medicine
DX: K56.609 Unspecified intestinal obstruction, unspecified as to partial versus complete obstruction (principal); I50.22 Chronic systolic (congestive) heart failure; I13.0 Hypertensive heart and chronic kidney disease with heart failure and stage 1 through stage 4 chronic kidney disease, or unspecified chronic kidney disease; I44.2 Atrioventricular block, complete; N39.0 Urinary tract infection, site not specified; I48.91 Unspecified atrial fibrillation; K21.9 Gastro-esophageal reflux disease without esophagitis; E78.00 Pure hypercholesterolemia, unspecified; I25.5 Ischemic cardiomyopathy; E78.5 Hyperlipidemia, unspecified; I70.1 Atherosclerosis of renal artery; I25.10 Atherosclerotic heart disease of native coronary artery without angina pectoris; N18.2 Chronic kidney disease, stage 2 (mild); D64.9 Anemia, unspecified; R35.0 Frequency of micturition; N26.1 Atrophy of kidney (terminal); N31.9 Neuromuscular dysfunction of bladder, unspecified; B96.89 Other specified bacterial agents as the cause of diseases classified elsewhere; E83.42 Hypomagnesemia; Z20.822 Contact with and (suspected) exposure to COVID-19; Z95.0 Presence of cardiac pacemaker; Z95.1 Presence of aortocoronary bypass graft; Z79.82 Long term (current) use of aspirin; Z23 Encounter for immunization
CPT/HCPCS: OP; 99223-AI; 99232-AI; 99233-AI; 99239; C9113; G0378; J0696; J1170; J2270; J2405; J2550; J3475; J7030

== ENCOUNTER → 2022-04-15 | Outpatient (REF) ==
[~2022-04-15] MED LIST changes: +AMOXICILLIN 8751 TAB PO; +DULCOLAX S10 MG/SUPP RC; +MAG-OX 400400 MG/TAB PO; +METAMUCIL3.4 GM/DOS PO; +TYLENOL 500MG500 MG PO
[2022-04-15 10:30] LABS: BASO # 0.1 K/mm3 (0.0-0.2); BASO % 0.5 % (0.0-2.0); EOS # 0.3 K/mm3 (0.0-0.7); EOS % 3.5 % (0.0-4.0); GRAN # 7.8 K/mm3 (1.4-6.5); GRAN % 83.8 % (42.2-75.2); LYMPH # 0.7 K/mm3 (1.2-3.4); LYMPH % 7.1 % (20.0-51.0); MEAN CELL VOLUME 98 fl (80.0-100.0); MEAN CORPUSCULAR HGB CONC 32 g/dl (33.0-37.0); MEAN PLATELET VOLUME 9.1 fl (7.4-10.4); MONO # 0.4 K/mm3 (0.1-0.6); MONO % 4.8 % (1.7-9.3); PLATELET COUNT 270 K/mm3 (130-400); RED BLOOD COUNT 2.85 M/mm3 (4.10-5.30); REDCELL DISTRIBUTION WIDTH-CV 12.9 % (11.5-14.5)
[2022-04-15 10:55] LABS: HEMOGLOBIN 8.9 g/dl (12.5-16.0); MEAN CORPUSCULAR HEMOGLOBIN 31 pg (27-31)
== END ==
LOC: ZCOL.LAB 10:20
PROVIDERS: Internal Medicine
DX: I12.9 Hypertensive chronic kidney disease with stage 1 through stage 4 chronic kidney disease, or unspecified chronic kidney disease (principal); N18.9 Chronic kidney disease, unspecified; D63.1 Anemia in chronic kidney disease